=== PATIENT | female | born 1940 | race Caucasian/White ===

== ENCOUNTER 2019-07-03 08:34 | Day surgery (SDC) | payer MEDICARE, OTHER ==
[~2019-07-03] VITALS: Ht 160 cm; Wt 65.8 kg
[~2019-07-03 08:34] MED LIST: ADULT ASPIRIN R81 MG PO; ALENDRONATE SOD70 MG PO; LEVAQUIN500 MG PO; ZANTAC300 MG PO
[2019-07-03] MEDS ORDERED: VITAMIN D2000 UNIT PO (08:57)
[2019-07-03] MEDS ORDERED: VITAMIN C500 M1 PO (08:58)
[2019-07-03] MEDS ORDERED: VITAMIN B-121000 MCG PO (08:58)
[2019-07-03] MEDS ORDERED: VITAMIN E400 UNI5 PO (08:58)
--- NOTE | 2019-07-03 10:56 | NUR ---
07/03/19 1056 Katy Chi 1036 PT ARRIVED IN PACU SLEEPY. ABD SOFT. 1045 PT AWAKENS. SITTING UP IN BED. GLASSES RETURNED.
--- NOTE | 2019-07-03 16:56 | OR ---
[facility] [address] [place], [place] [address] Signed DATE OF OPERATION: 07/03/2019 SURGEON: Renetta Hines MD PREOPERATIVE DIAGNOSES: 1. Personal history of hyperplastic rectal polyps in 2007. 2. Resolved chronic diarrhea. POSTOPERATIVE DIAGNOSES: 1. Minimal sigmoid diverticulosis. 2. 4 mm polyp at 55 cm. 3. Minimal internal hemorrhoids. PROCEDURE PERFORMED: Colonoscopy with hot biopsy. ESTIMATED BLOOD LOSS: None. INDICATIONS: Lane is a 78-year-old female, who still has good functional status. She has used a cane for many years because of poor balance. Otherwise, she does great. We did a colonoscopy in 2007. She had just a few tiny hyperplastic polyps in the rectum and in the distal sigmoid colon. She has no family history of colon cancer or polyps. She has no lower GI complaints currently. She told me the diarrhea has resolved. She went through a rather large kidney stone extraction back in 2015. This required a nephrostomy tube and so forth. She also had cardiac clearance for that surgery. She said she went through it quite nicely. In the office, I gave Lane a pamphlet on colonoscopy. We did review the nature of the test along with its risks including, but not limited to gas, bloating, crampy abdominal pain, bleeding, perforation requiring surgery, and missed diagnosis. We also discussed the need for IV conscious sedation. She has done well with Versed and fentanyl in the past. She had expressed understanding and wished to proceed. PROCEDURE NOTE: Lane was taken into our endoscopy suite and placed in the left lateral decubitus position. She was given a total of 5 mg of Versed, 125 mcg of fentanyl to cover the case. A digital rectal exam was performed and this was unremarkable. The adult colonoscope was then introduced and advanced under direct visualization of the camera. She required some extra sedation as we came through her sigmoid colon. She does have Electronically Signed By: RENETTA HINES MD 07/03/19 1656 PATIENT NAME: LANE BURROWS OPERATIVE REPORT DATE OF : 40 REPORT #: [id number] PHYSICIAN: RENETTA HINES MD PCP: JENNA DON MD REPORT IS CONFIDENTIAL AND NOT TO BE RELEASED WITHOUT AUTHORIZATION [facility] [address] [place], [place] [address] Signed minimal sigmoid diverticulosis, but the colon is a little bit narrow and it just took a little extra sedation. Once we reached the cecum, we could easily see the appendiceal orifice and the ileocecal valve. Her right colon was actually fairly short. Her prep was quite good. We slowly withdrew the scope. Pictures were taken throughout for photodocumentation. Back at 55-60 cm, she had a small polypoid lesion, which we removed with the help of hot biopsy forceps. The scope was then withdrawn further through the sigmoid colon again back into the rectum. The rectum was unremarkable. We had just enough room to retroflex the scope and she has some very minimal internal hemorrhoid tissue. After this, the gas was suctioned out and colonoscope removed. Lane tolerated the procedure quite well. RECOMMENDATIONS: I will see Lane back in my office in 7 to 14 days to review her results. She will resume aspirin in 1 week. Renetta Hines MD ALB/MODL /[id number] cc: MD Jenna Arreola MD Copies: RENETTA HINES MD, JONATHAN MD ~ Electronically Signed By: RENETTA HINES MD 07/03/19 1656 PATIENT NAME: LANE BURROWS OPERATIVE REPORT DATE OF : 40 REPORT #: [id number] PHYSICIAN: RENETTA HINES MD PCP: JENNA DON MD REPORT IS CONFIDENTIAL AND NOT TO BE RELEASED WITHOUT AUTHORIZATION
--- NOTE | 2019-07-04 16:22 | PATH ---
[facility] [address] [place], [place] [address] Signed SPECIMEN(S): A COLON POLYP AT 55 CM SPECIMEN SOURCE: A. COLON POLYP AT 55 CM CLINICAL HISTORY: Hx: Polyps. Postop: Diverticulosis, polyp. MICROSCOPIC DESCRIPTION: Histologic sections of all submitted blocks are examined by light microscopy. These findings, together with the gross examination, support the pathologic diagnosis. FINAL PATHOLOGIC DIAGNOSIS: Mucosa, colon at 55 cm, biopsy: - Surface features suggestive but not entirely diagnostic of hyperplastic polyp. COMMENT: Multiple levels over three slides are examined. No adenomatous change or full thickness hyperplastic change is seen. LJA:cml:C2NR GROSS DESCRIPTION: The specimen, labeled "VR, colon polyp at 55 cm," is received in formalin and consists of two kenney-white soft tissue fragments each measuring 0.3 cm in greatest dimension. The specimen is entirely submitted in cassette (A1). AR (under the direct supervision of a pathologist) The Gross Description was prepared using a voice recognition system. The report was reviewed for accuracy; however, sound-alike word errors, addition and/or deletions may occur. If there is any question about this report, please contact Client Services. PERFORMING LABORATORY: The technical component was performed by [facility], [address] [place] [id number] (Accounts Receivable Executive: Lyla Ghotra MD; CLIA# [id number]). [facility] [address] [address] (Accounts Receivable Executive: Kyrie Lerner MD; CLIA# [id number]). PATIENT NAME: LANE BURROWS PATHOLOGY DATE OF : 40 REPORT #: [id number] PHYSICIAN: TORRES PATHOLOGY PCP: JENNA DON MD REPORT IS CONFIDENTIAL AND NOT TO BE RELEASED WITHOUT AUTHORIZATION [address] [place], [place] [address] Signed Diagnostician: Kyrie Lerner MD Pathologist Electronically Signed 07/04/2019 Copies: ~ PATIENT NAME: LANE BURROWS PATHOLOGY DATE OF : 40 REPORT #: [id number] PHYSICIAN: TORRES PATHOLOGY PCP: JENNA DON MD REPORT IS CONFIDENTIAL AND NOT TO BE RELEASED WITHOUT AUTHORIZATION
== END 2019-07-03 11:36 | disposition home or self-care (01) ==
LOC: OPS 08:34 → DS 08:34 → OPS 09:45 → DS 09:45 → OPS 11:36
PROVIDERS: Colon & Rectal Surgery
PROC: 0DBE8ZZ Excision of Large Intestine, Via Natural or Artificial Opening Endoscopic (ICD-10-PCS; principal; 2019-07-03 09:45)
DX: Z12.11 Encounter for screening for malignant neoplasm of colon (principal); K57.30 Diverticulosis of large intestine without perforation or abscess without bleeding; K63.5 Polyp of colon; K64.8 Other hemorrhoids; I10 Essential (primary) hypertension; K21.9 Gastro-esophageal reflux disease without esophagitis; Z86.010 Personal history of colon polyps; Z98.890 Other specified postprocedural states; Z88.5 Allergy status to narcotic agent; Z88.1 Allergy status to other antibiotic agents; Z88.0 Allergy status to penicillin; Z88.2 Allergy status to sulfonamides; Z79.899 Other long term (current) drug therapy; Z79.82 Long term (current) use of aspirin
CPT/HCPCS: 99153; G0500; J2250; J3010; J7120

== ENCOUNTER 2020-05-11 22:48 | Inpatient (IN) | payer MEDICARE, OTHER ==
[~2020-05-11] VITALS: Ht 160 cm; Wt 67.6 kg
--- OUTSIDE RECORDS SUMMARY | ~2020-05-11 | XMS | Encounter Summary ---
Demographics + + + | Address | [address] | | | [place] [address] | + + + | Home Phone | | + + + | Preferred Language | Unknown | + + + | Marital Status | | + + + | Roman Catholic Affiliation | Unknown | + + + | Race | Unknown | + + + | Ethnic Group | Unknown | + + + Author + + + | Author | [facility] | | | and [facility] | + + + | Organization | [facility] | | | and [facility] | + + + | Address | Unknown | + + + | Phone | Unavailable | + + + Support + + + + + | Name | Relationship | Address | Phone | + + + + + | Nayan Reynolds | ECON | [address] | | | | | [place] | | | | | [address] | | + + + + + Care Team Providers + +------+ + | Care Paediatric Thoracic Physician Name | Role | Phone | + +------+ + | Jakob Springer | PCP | | | MD | | | + +------+ + Reason for Referral Diagnostic/Screening (Routine) +--------+--------+ + + + + | Status | Reason | Specialty | Diagnoses / | Referred By | Referred To | | | | | Procedures | Contact | Contact | +--------+--------+ + + + + | Closed | | Radiology | Diagnoses | [place], | [facility] | | | | | Pre-op exam | MD Jerrica | [address] | | | | | Abnormal | [address] | [place], | | | | | EKG | [address] | [place] | | | | | Procedures | [place], | [address] | | | | | ECHO | [place] [address] | Phone: | | | | | Complete [place] | Phone: | [phone] | | | | | ECHO HEART | [phone] | Fax: | | | | | [place] | Fax: | [phone] | | | | | [address] [address] | [phone] | | | | | | [place] | | | | | | | ECHO HEART | | | | | | | [place] | | | | | | | [place], W/O | | | | | | | DOPPLER | | | +--------+--------+ + + + + Reason for Visit Diagnostic/Screening (Routine) +--------+--------+ + + + + | Status | Reason | Specialty | Diagnoses / | Referred By | Referred To | | | | | Procedures | Contact | Contact | +--------+--------+ + + + + | Closed | | Radiology | Diagnoses | [place], | [facility] | | | | | Pre-op exam | MD Jerrica | [address] | | | | | Abnormal | [address] | Cris Lynch, | | | | | EKG | [address] | [place] | | | | | Procedures | [place], | [address] | | | | | ECHO | [place] [address] | Phone: | | | | | Complete [place] | Phone: | [phone] | | | | | ECHO HEART | [phone] | Fax: | | | | | [place] | Fax: | [phone] | | | | | [place] | [phone] | | | | | | [place] | | | | | | | ECHO HEART | | | | | | | [place] | | | | | | | MP[place], W/O | | | | | | | DOPPLER | | | +--------+--------+ + + + + Encounter Details +--------+ + + + + | Date | Type | Department | Care Team | Description | +--------+ + + + + | 04/21/ | Hospital | [facility] | Jerrica Darling, | Pre-op exam; | | 2016 | Encounter | [facility] [address] | MD [address] | Abnormal EKG | | | | [address] [place] | [address], | | | | | [place] [address] | [place] [address] | | | | | [phone] | [phone] | | | | | | | | | | | | Myla Hansen, | | | | | | Technologist | | +--------+ + + + + Social History + +-------+ +--------+------+ | Tobacco Use | Types | Packs/Day | Years | Date | | | | | Used | | + +-------+ +--------+------+ | Former Smoker | | | | | + +-------+ +--------+------+ + +---+---+---+ | Smokeless Tobacco: | | | | | Never Used | | | | + +---+---+---+ + + | Comments: quit in 2000 | + + + + +---------+ + | Alcohol Use | Drinks/Week | oz/Week | Comments | + + +---------+ + | No | 0 Standard drinks | 0.0 | | | | or equivalent | | | + + +---------+ + + + + | Sex Assigned at | Date Recorded | | | | + + + | Not on file | | + + + documented as of this encounter Medications at Time of Discharge + + + +---------+--------+ + | Medication | Sig | Dispensed | Refills | Start | End Date | | | | | | Date | | + + + +---------+--------+ + | alendronate | Take 70 mg by mouth | | 0 | | | | (FOSAMAX) 70 mg | Once a week. | | | | | | tablet | | | | | | + + + +---------+--------+ + | aspirin 81 MG | Take 81 mg by mouth | | 0 | | | | tablet | Daily. | | | | | + + + +---------+--------+ + | Cholecalciferol | Take 5,000 Units by | | 0 | | | | (VITAMIN D-3) 2000 | mouth Daily. | | | | | | units CAPS | | | | | | + + + +---------+--------+ + | cyanocobalamin | Take 5,000 mcg by | | 0 | | | | (VITAMIN B-12) 500 | mouth Daily. | | | | | | mcg tablet | | | | | | + + + +---------+--------+ + | ranitidine | Take 300 mg by mouth | | 0 | | | | (ZANTAC) 300 MG | nightly. | | | | | | capsule | | | | | | + + + +---------+--------+ + documented as of this encounter Plan of Treatment Not on filedocumented as of this encounter Procedures + +--------+ + + + | Procedure Name | Priori | Date/Time | Associated Diagnosis | Comments | | | ty | | | | + +--------+ + + + | ECHO COMPLETE | Routin | 04/21/2016 | Pre-op exam | Results for this | | | e | 8:50 AM | Abnormal EKG | procedure are in the | | | | PDT | | results section. | + +--------+ + + + | LVEF VALUE | Routin | 04/21/2016 | | Results for this | | | e | | | procedure are in the | | | | | | results section. | + +--------+ + + + documented in this encounter Results ECHO Complete (04/21/2016 8:50 AM PDT) + + | Specimen | + + | | + + + + ----+ | Narrative | Performed At | + + ----+ | Transthoracic | [facility] | | Echocardiography Report (TTE) Demographics Patient Name STORMY FLOWERS | | [place] Room Number A Patient Number | [facility] | | [id number] Date of Study 04/21/2016 Visit Number | - IMAGING | | [id number] Referring | | | Physician PHONG BECERRIL Number Date of 1940 | | | [employer] FRENCH LORETTA DUQUE | | | [place] | | | [place], | | | [place] Age 75 year(s) | | | Interpreting PHONG BECERRIL | | | Machining And Assembly Supervisor JERRICA DARLING MD | | | Gender Female Nurse Procedure Type of | | | Study TTE procedure: ECHO Complete. Procedure dateDate: | | | 04/21/2016Start: 08:09 AM Study Location: Echo LabIndications: | | | Abnormal ECG 794.31/R94.31 and preop Exam [id number].Patient | | | Status: RoutineHeight: 63 inchesWeight: 163 poundsBSA: 1.77 m^2BMI: | | | 28.87 kg/m^2Rhythm: Normal Sinus RhythmHR: 78 bpm ConclusionsSummary1. | | | Normal left ventricular size, wall thickness and motion. Preserved | | | leftventricular systolic function. LVEF is 65%.2. Grade 1 left | | | ventricular diastolic dysfunction.3. Normal valvular structure.4. | | | Normal right-sided pressure.5. Normal IVC with normal respiratory | | | collapse. | | | Signature | | | | | | AM | | | -------- FindingsMitral ValveStructurally normal mitral valve without | | | significant stenosis orregurgitation.Aortic ValveAortic valve is | | | trileaflet without significant stenosis or regurgitation.Tricuspid | | | ValveA vegetation is noted on the tricuspid valve. Suggestive of | | | endocarditis.Pulmonic ValveStructurally normal pulmonic valve without | | | significant stenosis orregurgitation.Left AtriumNormal left | | | atrium.Left VentricleLeft ventricle is normal in size and function. | | | Ejection fraction isestimated at 65 %.Grade 1 left ventricular | | | diastolic dysfunction.Right AtriumNormal right atrium.Right | | | VentricleNormal right ventricular structure and function.Pericardial | | | EffusionNo evidence of pericardial effusion. MiscellaneousNormal | | | aortic root.The IVC appears normal. Valves Mitral Valve Peak E-Wave: | | | 0.6 m/s Peak A-Wave: 0.83 m/s Tissue Doppler Septal e' Velocity: | | | 0.06 m/s Septal E/e' Ratio:9.56 Aortic Valve Mean Gradient: | | | 2.05 mmHg LVOT Peak Velocity: 1.07 m/s Structures Left Atrium LA | | | A/P Dimension: 3.4 cm LA Area: 11.03 cm^2 | | | LA Vol/BSA Index: 11 mL/m^2 LA Volume: 18.71 ml | | | Left Ventricle Diastolic Dimension: 4.2 cm Systolic | | | Dimension: 2.77 cm Septum Diastolic: 1 cm PW Diastolic: 1 cm EF | | | Calculated: 70% Miscellaneous Aorta Aortic Root: 3.33 cm Ascending | | | Aorta: 3.58 cm | | | | | | Electronically signed by JERRICA DARLING MD(Interpreting physician) on | | | 04/22/2016 07:47 AM | | | | | | | | |Findings | | |Mitral Valve | | |Structurally normal mitral valve without significant stenosis or | | |regurgitation. | | |Aortic Valve | | |Aortic valve is trileaflet without significant stenosis or regurgitation. | | |Tricuspid Valve | | |A vegetation is noted on the tricuspid valve. Suggestive of endocarditis. | | |Pulmonic Valve | | |Structurally normal pulmonic valve without significant stenosis or | | |regurgitation. | | |Left Atrium | | |Normal left atrium. | | |Left Ventricle | | |Left ventricle is normal in size and function. Ejection fraction is | | |estimated at 65 %. | | |Grade 1 left ventricular diastolic dysfunction. | | |Right Atrium | | |Normal right atrium. | | |Right Ventricle | | |Normal right ventricular structure and function. | | |Pericardial Effusion | | |No evidence of pericardial effusion. | | | | | |Miscellaneous | | |Normal aortic root. | | |The IVC appears normal. | | | | | |Valves | | | | | | Mitral Valve | | | | | | Peak E-Wave: 0.6 m/s | | | Peak A-Wave: 0.83 m/s | | | | | | Tissue Doppler | | | | | | Septal e' Velocity: 0.06 m/s | | | Septal E/e' Ratio:9.56 | | | | | | Aortic Valve | | | | | | Mean Gradient: 2.05 mmHg | | | | | | LVOT | | | | | | Peak Velocity: 1.07 m/s | | | | | |Structures | | | | | | Left Atrium | | | | | | LA A/P Dimension: 3.4 cm LA Area: 11.03 cm^2 | | | LA Vol/BSA Index: 11 mL/m^2 LA Volume: 18.71 ml | | | | | | Left Ventricle | | | | | | Diastolic Dimension: 4.2 cm Systolic Dimension: 2.77 cm | | | Septum Diastolic: 1 cm | | | PW Diastolic: 1 cm | | | EF Calculated: 70% | | | | | | Miscellaneous | | | | | | Aorta | | | | | | Aortic Root: 3.33 cm | | | Ascending Aorta: 3.58 cm | | | | | + + ----+ + + | Procedure Note | + + | Olu, Rad Results In - 04/22/2016 7:48 AM PDT Transthoracic Echocardiography Report | | (TTE) Demographics Patient Name [facility] Room Number A Patient | | Number [id number] Date of Study 04/21/2016 Visit Number [id number] | | Referring Physician PHONG BECERRIL Number Date of | | 1940 [employer] FRENCH DUQUE | | [place], | | [place] Age 75 year(s) Interpreting PHONG | | JERRICA Machining And Assembly Supervisor JERRICA DARLING MD Gender | | Female NurseProcedureType of Study TTE procedure: ECHO | | Complete.Procedure dateDate: 04/21/2016Start: 08:09 AMStudy Location: Echo | | LabIndications: Abnormal ECG 794.31/R94.31 and preop Exam [id number].Patient Status: | | RoutineHeight: 63 inchesWeight: 163 poundsBSA: 1.77 m^2BMI: 28.87 kg/m^2Rhythm: Normal | | Sinus RhythmHR: 78 bpmConclusionsSummary1. Normal left ventricular size, wall thickness | | and motion. Preserved leftventricular systolic function. LVEF is 65%.2. Grade 1 left | | ventricular diastolic dysfunction.3. Normal valvular structure.4. Normal right-sided | | pressure.5. Normal IVC with normal respiratory | | collapse.Signature | | ------ Electronically signed by JERRICA DARLING MD(Interpreting physician) on | | 04/22/2016 07:47 | | AM FindingsMi | | tral ValveStructurally normal mitral valve without significant stenosis | | orregurgitation.Aortic ValveAortic valve is trileaflet without significant stenosis or | | regurgitation.Tricuspid ValveA vegetation is noted on the tricuspid valve. Suggestive of | | endocarditis.Pulmonic ValveStructurally normal pulmonic valve without significant | | stenosis orregurgitation.Left AtriumNormal left atrium.Left VentricleLeft ventricle is | | normal in size and function. Ejection fraction isestimated at 65 %.Grade 1 left | | ventricular diastolic dysfunction.Right AtriumNormal right atrium.Right VentricleNormal | | right ventricular structure and function.Pericardial EffusionNo evidence of pericardial | | effusion.MiscellaneousNormal aortic root.The IVC appears normal.Valves Mitral Valve Peak | | E-Wave: 0.6 m/s Peak A-Wave: 0.83 m/s Tissue Doppler Septal e' Velocity: 0.06 m/s | | Septal E/e' Ratio:9.56 Aortic Valve Mean Gradient: 2.05 mmHg LVOT Peak Velocity: | | 1.07 m/sStructures Left Atrium LA A/P Dimension: 3.4 cm LA Area: 11.03 | | cm^2 LA Vol/BSA Index: 11 mL/m^2 LA Volume: 18.71 ml Left Ventricle | | Diastolic Dimension: 4.2 cm Systolic Dimension: 2.77 cm Septum Diastolic: 1 cm | | PW Diastolic: 1 cm EF Calculated: 70% Miscellaneous Aorta Aortic Root: 3.33 cm Ascending | | Aorta: 3.58 cm | |Rhythm: Normal Sinus RhythmHR: 78 bpm | | | |Conclusions | |Summary | |1. Normal left ventricular size, wall thickness and motion. Preserved left | |ventricular systolic function. LVEF is 65%. | |2. Grade 1 left ventricular diastolic dysfunction. | |3. Normal valvular structure. | |4. Normal right-sided pressure. | |5. Normal IVC with normal respiratory collapse. | | | |Signature | | | | Electronically signed by JERRICA DARLING MD(Interpreting physician) on | | 04/22/2016 07:47 AM | | | | | |Findings | |Mitral Valve | |Structurally normal mitral valve without significant stenosis or | |regurgitation. | |Aortic Valve | |Aortic valve is trileaflet without significant stenosis or regurgitation. | |Tricuspid Valve | |A vegetation is noted on the tricuspid valve. Suggestive of endocarditis. | |Pulmonic Valve | |Structurally normal pulmonic valve without significant stenosis or | |regurgitation. | |Left Atrium | |Normal left atrium. | |Left Ventricle | |Left ventricle is normal in size and function. Ejection fraction is | |estimated at 65 %. | |Grade 1 left ventricular diastolic dysfunction. | |Right Atrium | |Normal right atrium. | |Right Ventricle | |Normal right ventricular structure and function. | |Pericardial Effusion | |No evidence of pericardial effusion. | | | |Miscellaneous | |Normal aortic root. | |The IVC appears normal. | | | |Valves | | | | Mitral Valve | | | | Peak E-Wave: 0.6 m/s | | Peak A-Wave: 0.83 m/s | | | | Tissue Doppler | | | | Septal e' Velocity: 0.06 m/s | | Septal E/e' Ratio:9.56 | | | | Aortic Valve | | | | Mean Gradient: 2.05 mmHg | | | | LVOT | | | | Peak Velocity: 1.07 m/s | | | |Structures | | | | Left Atrium | | | | LA A/P Dimension: 3.4 cm LA Area: 11.03 cm^2 | | LA Vol/BSA Index: 11 mL/m^2 LA Volume: 18.71 ml | | | | Left Ventricle | | | | Diastolic Dimension: 4.2 cm Systolic Dimension: 2.77 cm | | Septum Diastolic: 1 cm | | PW Diastolic: 1 cm | | EF Calculated: 70% | | | | Miscellaneous | | | | Aorta | | | | Aortic Root: 3.33 cm | | Ascending Aorta: 3.58 cm | + + + + + + + | Performing | Address | City/State/Zipcode | Phone Number | | Organization | | | | + + + + + | [facility] | [address] | [place], [place] | [phone] | | [facility] | | [address] | | | - IMAGING | | | | + + + + + LVEF VALUE (04/21/2016) + +-------+ + + + | Component | Value | Ref Range | Performed | Pathologist | | | | | At | Signature | + +-------+ + + + | LVEF-TTE | 65 | | | | | TRANSTHORAC | | | | | | IC ECHO | | | | | + +-------+ + + + documented in this encounter Visit Diagnoses + + | Diagnosis | + + | Pre-op exam Preoperative examination, unspecified | + + | Abnormal EKG Nonspecific abnormal electrocardiogram (ECG) (EKG) | + + documented in this encounter"
--- OUTSIDE RECORDS SUMMARY | ~2020-05-11 | XMS | Encounter Summary ---
Demographics + + + | Address | [address] | | | [place] [address] | + + + | Home Phone | | + + + | Preferred Language | Unknown | + + + | Marital Status | | + + + | Amish Affiliation | Unknown | + + + | Race | Unknown | + + + | Ethnic Group | Unknown | + + + Author + + + | Author | [facility] | | | and [place] | + + + | Organization | [facility] | | | and [place] | + + + | Address | Unknown | + + + | Phone | Unavailable | + + + Support + + + + + | Name | Relationship | Address | Phone | + + + + + | Nayan Reynolds | E[place] | [address] | | | | | [place] | | | | | [address] | | + + + + + Care Team Providers + +------+ + | Care Pharmacovigilance Scientist Name | Role | Phone | + [...] Radiology | Diagnoses | [place], | [facility] | | | | | Abnormal | MD Jerrica | Medicine | | | | | electrocardi | [address] | [address] | | | | | ogram (ECG) | [address] | [place], | | | | | (EKG) | [place], | [place] | | | | | Encounter | [place] [address] | [address] | | | | | for other | Phone: | Phone: | | | | | preprocedura | [phone] | [phone] | | | | | l | Fax: | Fax: | | | | | examination | [phone] | [phone] | | | | | Procedures | | | | | | | NM Nuclear | | | | | | | Stress Test | | | | | | | (Vasodilator | | | | | | | ) CHG | | | | | | | MYOCARDIAL | | | | | | | SPECT | | | | | | | MULTIPLE | | | | | | | STUDIES [place] | | | | | | | CV STRS TST | | | | | | | XERS&/OR RX | | | | | | | CONT ECG W/O | | | | | | | I&R [place] | | | | | | | CARDIAC | | | | | | | STRESS | | | | | | | TST,INTERP/R | | | | | | | EPT ONLY | | | +--------+--------+ + + + + Diagnostic/Screening (Routine) +--------+--------+ + + + + | Status | Reason | Specialty | Diagnoses / | Referred By | Referred To | | | | | Procedures | Contact | Contact | +--------+--------+ + + + + | Closed | | Radiology | Diagnoses | [place], | [facility] | | | | | Pre-op exam | MD Jerrica | [address] | | | | | Abnormal | [address] | [place], | | | | | EKG | [address] | [place] | | | | | Procedures | [place], | [address] | | | | | ECHO | [place] [address] | Phone: | | | | | Complete [place] | Phone: | [phone] | | | | | ECHO HEART | [phone] | Fax: | | | | | [facility] | Fax: | [phone] | | | | | MPLETE W | [phone] | | | | | | DOPPLER [place] | | | | | | | ECHO HEART | | | | | | | [facility],[place] | | | | | | | MPLETE, W/O | | | | | | | DOPPLER | | | +--------+--------+ + + + + Reason for Visit + + + | Reason | Comments | + + + | New Patient | RBBB | + + + | Pre-op Exam | Kidney stone and Bladder Suspension | + + + | Abnormal Tests | EKG | + + + Evaluate & Treat (Routine) +--------+--------+ + + + + | Status | Reason | Specialty | Diagnoses / | Referred By | Referred To | | | | | Procedures | Contact | Contact | +--------+--------+ + + + + | Closed | | Cardiology | Diagnoses | Gian, | [place]ong, | | | | | Abnormal | Jakob | MD Jerrica | | | | | EKG RBBB | MD Saurabh | [address] | | | | | Preop | [address] | | | | | cardiovascul | Gavin Reyes | [place], | | | | | ar exam | [place] | [place] [address] | | | | | Procedures | [place] | Phone: | | | | | LACE MACHINE OPERATOR | [address] | [phone] | | | | | | Phone: | Fax: | | | | | | [phone] | [phone] | | | | | | Fax: | | | | | | | [phone] | | +--------+--------+ + + + + Encounter Details +--------+---------+ + + + | Date | Type | Department | Care Team | Description | +--------+---------+ + + + | 04/14/ | Office | [facility] | Jerrica Darling, | RBBB (Primary Dx); | | 2015 | Visit | CARDIOLOGY [address] | Pre-op exam; | | | | [address] [place], | [place], | Abnormal EKG | | | | [place] [address] | [place] [address] | | | | | [phone] | [phone] | | | | | | | | +--------+---------+ + + + Social History + +-------+ [...] +---+---+---+ + + | Comments: quit in 1999 | + + + + +---------+ + [...] + + documented as of this encounter Last Filed Vital Signs + + + + + | Vital Sign | Reading | Time Taken | Comments | + + + + + | Blood Pressure | 124/82 | 04/14/2016 2:06 PM | | | | | PDT | | + + + + + | Pulse | 84 | 04/14/2016 1:57 PM | Regular | | | | PDT | | + + + + + | Temperature | - | - | | + + + + + | Respiratory Rate | 16 | 04/14/2016 1:57 PM | | | | | PDT | | + + + + + | Oxygen Saturation | - | - | | + + + + + | Inhaled Oxygen | - | - | | | Concentration | | | | + + + + + | Weight | 74.1 kg (163 lb 4.8 | 04/14/2016 1:57 PM | | | | oz) | PDT | | + + + + + | Height | 160 cm (5' 3") | 04/14/2016 1:57 PM | | | | | PDT | | + + + + + | Body Mass Index | 28.93 | 04/14/2016 1:57 PM | | | | | PDT | | + + + + + documented in this encounter Patient Instructions Patient Instructions Perla Levin RN - 04/14/2016 3:13 PM PDTEcho: Date: Check-In Time: Where to Check In: Persantine/Lexiscan Myoview Date: Check-in Time: Where to Check In: Instructions 1. Nothing to eat or drink anything 6 hours prior to Persantine/Lexiscan 2. DO NOT drink caffeine 12 hours prior to the test. 3. You can take all other medications the morning of the test with a small sip of water. 4. Please bring a list of your current medications with you. Resting Portion of test: Date: Check-in Time: Where to Check In: Follow up appointment: 2-4 weeks Provider: Jerrica Darling MD Date: Check-In Time: documented in this encounter Progress Notes Jerrica Darling MD - 04/14/2016 2:05 PM PDTFormatting of this note might be different f rom the original. PATIENT NAME: Neisha Sanders : 1940: AGE: 75 y.o. REFERRED BY: Jakob Springer PRIMARY CARE: Jakob Springer MD NEW PATIENT OFFICE VISIT Date of Service: 04/14/16 HISTORY OF PRESENT ILLNESS: Neisha Sanders is a 75 y.o. female with a history of osteoporosis, heart murmur, kidney stone, tipped bladder and abnormal EKG. She is being seen today for preop clearance prior to bladder surgery. Patient was recently seen by Dr. Ag for a kidney stone who planned to perform operation . EKG was performed and revealed a right bundle branch block. Today, patient complains of bilateral ankle swelling. However, her physical activity is ve ry limited. She cannot walk far due to the imbalance. She's been most of the time sitting, watching TV and reading books. She was told that she had a heart murmur in the past. Ther e is no chest pain or chest discomfort both at rest and on exertion. Patient denies breathl essness. There is no palpitation dizziness or lightheadedness. Patient can sleep on one pi llow at night without difficulty breathing. CURRENT PROBLEMS Patient Active Problem List Diagnosis Bundle branch block, right Cystitis, subacute Essential hypertension, benign GERD (gastroesophageal reflux disease) Right nephrolithiasis Osteoporosis, postmenopausal Vitamin D deficiency MEDICAL, SURGICAL, AND PERSONAL HISTORY Past Surgical History Procedure Laterality Date Colonoscopy 11/2007 hyperplastic polyps Appendectomy Hysterectomy, total abdominal removal of both ovaries Family History Problem Relation Age of Onset Cirrhosis Father Diabetes Mother Heart disease Mother arteriosclerotic Family Status Relation Status Age Father 58 Mother 62 Sister Alive Sister Alive Sister Alive Sister Alive Brother Alive Brother Alive Sister Sister Sister Sister Brother Brother History Social History Marital Status: Spouse Name: N/A Number of Children: 3 Years of Education: N/A Social History Main Topics Smoking status: Former Smoker Smokeless tobacco: Never Used Comment: quit in 1999 Alcohol Use: No Drug Use: No Sexual Activity: Not on file Other Topics Concern None Social History Narrative Exercise:Stationary bike Caffeine: 1 cup to 1 pot of coffee daily Living situation:alone CURRENT MEDICATIONS Current Outpatient Prescriptions Medication Sig Dispense Refill alendronate (FOSAMAX) 70 mg tablet Take 70 mg by mouth Once a week. aspirin 81 MG tablet Take 81 mg by mouth Daily. Cholecalciferol (VITAMIN D-3) 2000 units CAPS Take 4,000 Units by mouth Daily. cyanocobalamin (VITAMIN B-12) 500 mcg tablet Take 500 mcg by mouth Daily. ranitidine (ZANTAC) 300 MG capsule Take 300 mg by mouth nightly. No current facility-administered medications for this visit. ALLERGIES Allergies Allergen Reactions Codeine Other (See Comments) hallucinations Doxycycline Diarrhea and Nausea And Vomiting Penicillins Hives and Rash Sulfa Antibiotics Hives and Rash ROS Review of Systems Constitutional: Positive for malaise/fatigue. Negative for fever, chills, weight loss and d iaphoresis. HENT: Negative for congestion, hearing loss, nosebleeds, sore throat and tinnitus. Eyes: Negative for blurred vision and double vision. Respiratory: Positive for shortness of breath. Negative for cough and wheezing. Cardiovascular: Positive for leg swelling. Negative for chest pain, palpitations, orthopnea , claudication and PND. Gastrointestinal: Positive for heartburn and abdominal pain. Negative for nausea, vomiting, diarrhea, constipation, blood in stool and melena. Genitourinary: Positive for dysuria and flank pain. Negative for urgency, frequency and hem aturia. Musculoskeletal: Negative for myalgias, back pain, joint pain, falls and neck pain. Skin: Negative for itching and rash. Neurological: Positive for tremors. Negative for dizziness, tingling, seizures, loss of con sciousness, weakness and headaches. Endo/Heme/Allergies: Negative for environmental allergies and polydipsia. Bruises/bleeds ea sily. Psychiatric/Behavioral: Negative for memory loss. The patient is not nervous/anxious. OBJECTIVE: PHYSICAL EXAM BP 124/82 mmHg | Pulse 84 | Resp 16 | Ht 1.6 m (5' 3") | Wt 74.072 kg (163 lb 4.8 oz) | BMI 28.93 kg/m2 Physical Exam Constitutional: She appears well-developed and well-nourished. No distress. Female individual without acute distress, arrived with a cane, accompanied by her son. Neck: Normal carotid pulses, no hepatojugular reflux and no JVD present. Carotid bruit is n ot present. Cardiovascular: Normal rate, regular rhythm, S1 normal, S2 normal, intact distal pulses and normal pulses. PMI is not displaced. Exam reveals no gallop, no S3, no S4 and no friction rub. Murmur (rade 1/6 holosystolic murmur along) heard. Pulses: Carotid pulses are 2+ on the right side, and 2+ on the left side. Dorsalis pedis pulses are 2+ on the right side, and 2+ on the left side. Pulmonary/Chest: Effort normal and breath sounds normal. No accessory muscle usage. No resp iratory distress. She has no wheezes. She has no rhonchi. She has no rales. Abdominal: Normal appearance, normal aorta and bowel sounds are normal. She exhibits no abd ominal bruit. There is no hepatosplenomegaly. There is no tenderness. Musculoskeletal: She exhibits edema (bilateral 1+ ankle pitting edema.). Neurological: She is alert. Gait normal. Skin: Skin is warm and dry. Psychiatric: She has a normal mood and affect. Her mood appears not anxious. She does not e xhibit a depressed mood. ECG: Normal sinus rhythm, complete right bundle branch block, nonspecific ST-T abnormaliti es. LAB RESULTS: LIPID No results found for: CHOL, TRIG, HDL, LDL, CHOLHDL, LDLEX, HDLEX, TRIGEX, CHOLEX CHEMISTRY Lab Results Component Value Date GLUEX 111* 08/22/2015 NAEX 138 08/22/2015 KEX 3.8 08/22/2015 CLEX 104 08/22/2015 CO2EX 25 08/22/2015 ASTEX 16 08/22/2015 ALTEX 9 08/22/2015 EGFREX 76 08/22/2015 CREEX 0.75 08/22/2015 HEMATOLOGY Lab Results Component Value Date WBCEX 13.6* 08/22/2015 HGBEX 15.3 08/22/2015 HCTEX 45.6* 08/22/2015 PLTEX 223 08/22/2015 I reviewed records from Jakob Springer M.D. for office visit on 03/25/16. Referr al to paper winder for preop clearance ASSESSMENT: 1. Right bundle-branch block and ankle swelling, preop clearance prior to bladder surgery A. Patient was found to have a complete right bundle branch block on the preop EKG. B. Today, patient complains of bilateral ankle swelling. However, her physical activity i s very limited. She cannot walk far due to the imbalance. She's been most of the time sitt ing, watching TV and reading books. She was told that she had a heart murmur in the past. There is no chest pain or chest discomfort both at rest and on exertion. Patient denies richard athlessness. She is in a class II of [place] [employer] functional class. There is 1+ bilater al ankle pitting edema on physical examination. She is undergoing an elective, non-emergent surgery and would benefit from a cardiac risk assessment. Her Revised Cardiac Risk Index (RCRI) is calculated showing his risks include high risk surgery, coronary artery disease, congestive heart failure, cerebrovascular diseas e, diabetes on insulin and serum creatinine >2mg/dL, which is 1 risk equating to Class II, e stimated 0.9% risk of MACE. This is considered an elevated risk. Her Frankel Activity Status Index (DASI) score is calculated and shows she has a poor functional capacity, so we are kiki ble to evaluate METS, and would benefit from further testing and risk stratification. She i s not on a beta kira, and is not on HMG CoA reductase inhibitor (statin). She [employer] stress test.. Prior to proceeding with surgery, the risk and benefit of the procedure need to be discussed between patient and surgeon. 2. Heart murmur 3. Kidney stone, tipped bladder A. Patient was recently seen by Dr. Ag for a kidney stone who planned to perform opera tion. EKG was performed and revealed a right bundle branch block. PLAN: 1. Echocardiogram is warranted to assess for potential heart failure. 2. Persantine SPECT MPI is indicated to assess cardiac risk prior to noncardiac surgery. 3. I recommend a therapeutic lifestyle change including walking 30 minutes a day, choosing healthy choices of diet , including DASH diet and weight reduction. 4. Follow-up in 2-4 weeks. Electronically signed by: Jerrica Darling MD [facility] 04/14/2016 Portions of this chart may have been created with [employer] voice recognition software. Occasi onal wrong-word or sound-alike substitutions may have occurred due to the inherent paz itations of voice recognition software. Please read the chart carefully and recognize, using context, where these substitutions have occurred. documented in this encounter Plan of Treatment Not on filedocumented as of this encounter Procedures + +--------+ + + + | Procedure Name | Priori | Date/Time | Associated Diagnosis | Comments | | | ty | | | | + +--------+ + + + | ECG 12 LEAD | Routin | 04/14/2016 | RBBB Pre-op exam | Results for this | | | e | 1:55 PM | | procedure are in the | | | | PDT | | results section. | + +--------+ + + + documented in this encounter Results NM Nuclear Stress Test (Vasodilator) (04/21/2016 1:27 PM PDT) + + | Specimen | + + | | + + + + + | Impressions | Performed At | + + + | 1. Persantine EKG is negative. 2. Normal Persantine | [facility] | | Sestamibi myocardial perfusion study with a normal left ventricular | [facility] | | size and wall thickness. Preserved left ventricular systolic | [facility] | | function. LVEF by gated SPECT 80 %. Signed by: Jerrica | - IMAGING | | MD Phong [facility] 04/21/2016, 13:27 | | + + + + + + | Narrative | Performed At | + + + | NUCLEAR MEDICINE STRESS TEST REPORT | [facility] | | Patient Name: Neisha Sanders Study Date: 04/21/2016 Primary | [facility] | | Care Provider: Jakob Springer MD : | [facility]ICAL [facility] | | 1940 Age: 75 y.o. Gender: female CLINICAL | - IMAGING | | HISTORY/DIAGNOSIS: Chest pain PERSANTINE SESTAMIBI STRESS | | | TEST Indication: chest pain Procedure: In the supine | | | position, 42.1 mg of Persantine was infused intravenously over 4 | | | minutes. Blood pressure and EKG were monitored every 1 minute. 5 | | | mL of normal saline was utilized to flush the IV line. 2.5 minutes | | | later, 10.4 mCi sestamibi intravenous injection. SPECT myocardial | | | perfusion imaging was acquired with wall motion analysis. Rest | | | imaging was performed using 34.1 mCi Sestamibi intravenous | | | injection. Repeated SPECT myocardial perfusion imaging was | | | acquired with wall motion analysis. At the end of the procedure, | | | 75 mg of aminophylline was infused intravenously. Hemodynamics: | | | Heart rate baseline 80 beats per minute, peak 94 beats per minute. | | | Blood pressure baseline 143/72 mmHg, peak 119/65 mmHg. EKG | | | baseline underlying sinus rhythm, complete right bundle branch | | | block. Peak unchanged. Side Effects: None. Arrhythmia: | | | None. Persantine Sestamibi Myocardial Perfusion Imaging Result: | | | The Persantine Sestamibi tomographic images, reviewed | | | without the attenuation compensation resolution, revealed a normal | | | myocardial perfusion pattern as seen in short axis, vertical long | | | axis, and horizontal long axis projections. The left ventricular | | | cavity is normal. The rest imaging is also normal. | | | Gated SPECT reveals a normal left ventricular wall thickness and | | | motion. Preserved left ventricular systolic function. LVEF by | | | gated SPECT is 80 %. | | + + + + + + + + | Performing | Address | City/State/Zipcode | Phone Number | | Organization | | | | + + + + + | [facility] | [address] | [place] | [phone] | | [facility] | | [address] | | | - IMAGING | | | | + + + + + ECHO Complete (04/21/2016 8:50 AM PDT) + + | Specimen | + + | | + + + + ----+ | Narrative | Performed At | + + ----+ | Transthoracic | [facility] | | Echocardiography Report (TTE) Demographics Patient Name STORMY FLOWERS | | [place] Room Number A Patient Number | [facility] | | [id number] Date of Study 04/21/2016 Visit Number | - IMAGING | | [id number] Referring | | | Physician PHONG BECERRIL Number Date of 1940 | | | Service Engineer FRENCH DUQUE | | | [place] | | | [place], | | | [place] Age 75 year(s) | | | Interpreting PHONG BECERRIL | | | Environmental Compliance Technician JERRICA DARLING MD | | | Gender [...] | | | | Electronically signed by VALERIA VALERAInterpreting physician) on | | | 04/22/2016 07:47 [...] | Procedure Note | + + | Shay Raines Results In - 04/22/2016 7:48 AM PDT Transthoracic Echocardiography Report | | (TTE) Demographics Patient Name STORMY SHERMAN Room Number Rema Patient | | Number [id number] Date of Study 04/21/2016 Visit Number [id number] | | Referring Physician PHONG BECERRIL Number Date of | | 1940 Service Engineer FRENCH DUQUE | | [place], | | [place] Age 75 year(s) Interpreting PHONG | | JERRICA Environmental Compliance Technician JERRICA DARLING MD Gender | | Female [...] | + + + + + | [facility] | [address] | [place], [place] | [phone] | | [facility] | | [address] | | | - IMAGING | | | | + + + + + ECG 12 lead (04/14/2016 1:55 PM PDT) + + + + + + | Component | Value | Ref Range | Performed | Pathologist | | | | | At | Signature | + + + + + + | VENTRICULAR | 84 | BPM | [facility] | | | RATE EKG | | | | | + + + + + + | ATRIAL RATE | 84 | BPM | [facility] | | + + + + + + | P-R | 134 | ms | [facility] | | | INTERVAL | | | | | + + + + + + | QRS | 130 | ms | [facility] | | | DURATION | | | | | + + + + + + | Q-T | 392 | ms | [facility] | | | INTERVAL | | | | | + + + + + + | Q-T | 463 | ms | [facility] | | | INTERVAL | | | | | | (CORRECTED) | | | | | + + + + + + | P WAVE AXIS | 68 | degrees | [facility] | | + + + + + + | QRS AXIS | 10 | degrees | [facility] | | + + + + + + | T AXIS | 59 | degrees | [facility] | | + + + + + + | INTERPRETAT | Normal sinus rhythmRight | | [facility] | | | ION TEXT | bundle branch | | | | | | blockAbnormal ECGNo | | | | | | previous ECGs | | | | | | availableConfirmed by | | | | | | JERRICA DARLING MD | | | | | | ([id number]) on 04/16/2016 | | | | | | 10:00:40 AM | | | | + + + + + + + + | Specimen | + + | | + + + + + | Narrative | Performed At | + + + | | | + + + + +---------+ + + | Performing | Address | City/State/Zipcode | Phone Number | | Organization | | | | + +---------+ + + | [facility] | | | | + +---------+ + + documented in this encounter Visit Diagnoses + + | Diagnosis | + + | RBBB - Primary Right bundle branch block | + + | Pre-op exam Preoperative examination, unspecified | + + | Abnormal EKG Nonspecific abnormal electrocardiogram (ECG) (EKG) | + + documented in this encounter
--- OUTSIDE RECORDS SUMMARY | ~2020-05-11 | XMS | Encounter Summary ---
Demographics + + + | Address | [address] | | | [place] [address] | + + + | Home Phone | | + + + | Preferred Language | Unknown | + + + | Marital Status | | + + + | Jewish Affiliation | Unknown | + + + | Race | Unknown | + + + | Ethnic Group | Unknown | + + + Author + + + | Author | [facility] | | | and [place] | + + + | Organization | [facility] | | | and [place] | + + + | Address | Unknown | + + + | Phone | Unavailable | + + + Support + + + + + | Name | Relationship | Address | Phone | + + + + + | Nayan Reynolds | ECON | [address] | | | | | [place] | | | | | [address] | | + + + + + Care Team Providers + +------+ + | Care Emg Technician Name | Role | Phone | + [...] Closed | | Radiology | Diagnoses | Zena | | | | | | Calculus of | Mario Alberto Arce MD | | | | | | kidney | [address] | | | | | | Procedures | [address] | | | | | | CT Abdomen | [address] | | | | | | Pelvis wo | [place], [place] | | | | | | Contrast | [address] | | | | | | | Phone: | | | | | | | [phone] | | | | | | | Fax: | | | | | | | [phone] | | +--------+--------+ + + + + Reason for Visit Diagnostic/Screening (Routine) +--------+--------+ + + + + | Status | Reason | Specialty | Diagnoses / | Referred By | Referred To | | | | | Procedures | Contact | Contact | +--------+--------+ + + + + | Closed | | Radiology | Diagnoses | Janoff, | | | | | | Calculus of | Mario Alberto Arce MD | | | | | | kidney | [address] | | | | | | Procedures | [address] | | | | | | CT Abdomen | [address] | | | | | | Pelvis wo | [place], [place] | | | | | | Contrast | [address] | | | | | | | Phone: | | | | | | | [phone] | | | | | | | Fax: | | | | | | | [phone] | | +--------+--------+ + + + + Encounter Details +--------+ + + + + | Date | Type | Department | Care Team | Description | +--------+ + + + + | 07/20/ | Hospital | [facility] | Mario Alberto Freitas, | Calculus of kidney | | 2016 | Encounter | MED CTR [address] | [address] | | | | | [place], | [address] | | | | | [place] [address] | [place], [place] | | | | | [phone] | [address] | | | | | | [phone] | | | | | | | | +--------+ + + + + [...] | + +--------+ + + + | CT ABDOMEN PELVIS WO | Routin | 07/20/2016 | Calculus of kidney | Results for this | | CONTRAST | e | 11:59 AM | | procedure are in the | | | | PDT | | results section. | + +--------+ + + + documented in this encounter Results CT Abdomen Pelvis wo Contrast (07/20/2016 11:59 AM PDT) + + | Specimen | + + | | + + + + + | Narrative | Performed At | + + + | UNENHANCED CT ABDOMEN AND PELVIS 07/20/2016 11:48 AM CLINICAL | [facility] | | HISTORY: CALCULUS OF KIDNEY COMPARISON: None TECHNIQUE: | | | Axial unenhanced images are performed through the abdomen and pelvis. | | | Coronal and sagittal reformations are also performed. FINDINGS: | | | Very large, smoothly marginated high density stone virtually | | | filling the right renal pelvis. This has cross-sectional measurements | | | 1.6 x 2.7 x 1.[address] density of approximately 1000 units. | | | Surprisingly, there is no associated right hydronephrosis. Kidneys | | | are symmetric in size with normal contours. Low-density 2 cm cyst in | | | the mid cortex of the left kidney. No other focal renal abnormality. | | | No other stones. Urinary bladder is within normal limits. Prostatic | | | urethra is prominent, without prostatic hypertrophy. Emphysematous | | | changes in the lung bases with no airspace consolidation or nodule. | | | No effusion. Liver shows normal appearance for a noncontrast scan. | | | Gallbladder, pancreas, spleen and adrenal glands are normal. | | | Diffuse almost uniform aortic intimal calcification with no stenotic | | | or aneurysmal segments. No retroperitoneal adenopathy. Stomach | | | and small bowel are nondilated. Ileocecal junction is normal. No | | | appendix is seen. Scattered diverticula in the sigmoid region without | | | associated inflammatory change. No other colonic abnormality. No | | | mesenteric inflammatory changes or adenopathy. No abdominal or pelvic | | | free fluid. Mild facet degenerative changes of the lumbar spine. | | | No other bony or body. IMPRESSION - 1. Very large, but | | | nonobstructing high density stone in the right renal pelvis as | | | described above. This stone should be readily visible on plain x-ray. | | | No other renal stones. 2. Sigmoid diverticulosis, without imaging | | | features of diverticulitis. 3. Pulmonary emphysema. Dictated | | | and Signed by: Andrzej Judd MD Electronically signed: | | | 07/20/2016 4:35 PM | | + + + + + | Procedure Note | + + | Olu, Rad Results In - 07/20/2016 4:38 PM PDT UNENHANCED CT ABDOMEN AND PELVIS | | 07/20/2016 11:48 AM CLINICAL HISTORY: CALCULUS OF KIDNEY COMPARISON: None TECHNIQUE: | | Axial unenhanced images are performed through the abdomen and pelvis. Coronal and | | sagittal reformations are also performed. FINDINGS: Very large, smoothly marginated | | high density stone virtually filling the rightrenal pelvis. This has cross-sectional | | measurements 1.6 x 2.7 x 1.3 cm with a CTdensity of approximately 1000 units. | | Surprisingly, there is no associated righthydronephrosis. Kidneys are symmetric in size | | with normal contours. Low-density2 cm cyst in the mid cortex of the left kidney. No | | other focal renalabnormality. No other stones. Urinary bladder is within normal limits. | | Prostaticurethra is prominent, without prostatic hypertrophy.Emphysematous changes in | | the lung bases with no airspace consolidation ornodule. No effusion.Liver shows normal | | appearance for a noncontrast scan.Gallbladder, pancreas, spleen and adrenal glands are | | normal.Diffuse almost uniform aortic intimal calcification with no stenotic oraneurysmal | | segments. No retroperitoneal adenopathy.Stomach and small bowel are nondilated. | | Ileocecal junction is normal. Noappendix is seen. Scattered diverticula in the sigmoid | | region without associatedinflammatory change. No other colonic abnormality.No mesenteric | | inflammatory changes or adenopathy. No abdominal or pelvic freefluid.Mild facet | | degenerative changes of the lumbar spine. No other bony or body. IMPRESSION - 1. Very | | large, but nonobstructing high density stone in the right renal pelvisas described | | above. This stone should be readily visible on plain x-ray. Noother renal stones.2. | | Sigmoid diverticulosis, without imaging features of diverticulitis.3. Pulmonary | | emphysema. Dictated and Signed by: Andrzej Judd MD Electronically signed: 07/20/2016 | | 4:35 PM | | | |Diffuse almost uniform aortic intimal calcification with no stenotic or | |aneurysmal segments. No retroperitoneal adenopathy. | | | |Stomach and small bowel are nondilated. Ileocecal junction is normal. No | |appendix is seen. Scattered diverticula in the sigmoid region without associated | |inflammatory change. No other colonic abnormality. | | | |No mesenteric inflammatory changes or adenopathy. No abdominal or pelvic free | |fluid. | | | |Mild facet degenerative changes of the lumbar spine. No other bony or body. | | | |IMPRESSION - | |1. Very large, but nonobstructing high density stone in the right renal pelvis | |as described above. This stone should be readily visible on plain x-ray. No | |other renal stones. | | | |2. Sigmoid diverticulosis, without imaging features of diverticulitis. | | | |3. Pulmonary emphysema. | | | |Dictated and Signed by: Andrzej Judd MD | | Electronically signed: 07/20/2016 4:35 PM | + + + +---------+ + + | Performing | Address | City/State/Zipcode | Phone Number | | Organization | | | | + +---------+ + + | [facility] | | | | + +---------+ + + documented in this encounter Visit Diagnoses + + | Diagnosis | + + | Calculus of kidney | + + documented in this encounter"
--- OUTSIDE RECORDS SUMMARY | ~2020-05-11 | XMS | Encounter Summary ---
Demographics + + + | Address | [address] | | | [place] [address] | + + + | Home Phone | | + + + | Preferred Language | Unknown | + + + | Marital Status | | + + + | Advent Affiliation | Unknown | + + + | Race | Unknown | + + + | Ethnic Group | Unknown | + + + Author + + + | Author | [facility] | | | and [place] | + + + | Organization | [facility] | | | and [place] | + + + | Address | Unknown | + + + | Phone | Unavailable | + + + Support + + + + + | Name | Relationship | Address | Phone | + + + + + | Nayan Reynolds | ECON | [address] | | | | | [place] | | | | | [address] | | + + + + + Care Team Providers + +------+ + | Care Cover Cutter Name | Role | Phone | + +------+ + | Jakob Springer PCP | | | MD | | | + +------+ + Reason for Visit + +--------+ + | Reason | Onset | Comments | | | Date | | + +--------+ + | Appointment | 03/29/ | | | | 2015 | | + +--------+ + Encounter Details +--------+ + + + + | Date | Type | Department | Care Team | Description | +--------+ + + + + | 03/29/ | Telephone | [facility] | Jakob Springer | Appointment | | 2016 | | CARDIOLOGY [address] | MD [address] | | | | | [place], | [place] | | | | | [place] [address] | [place] | | | | | [phone] | [address] | | | | | | [phone] | | | | | | | | +--------+ + + + + Social History + +-------+ +--------+------+ | Tobacco Use | Types | Packs/Day | Years | Date | | | | | Used | | + +-------+ +--------+------+ | Never Assessed | | | | | + +-------+ +--------+------+ + + + | Sex Assigned at | Date Recorded | | | | + + + | Not on file | | + + + documented as of this encounter Miscellaneous Notes Telephone Encounter - Rose Mary Mai - 03/29/2016 1:33 PM PDTPatient called back, states that her son can bring her on 04-14-16 and would like to schedule her appointment. Appointme nt was scheduled. elephon e Encounter - Rose Mary Mai - 03/29/2016 10:[address]a with Dr. Gian Proctor's office, called to check status of their referral to Dr. Fernandes. Advised that referral had been received and patient had been contacted, patient declined scheduling appo intment until she spoke to her son, we are waiting for return call from patient or son.Elect ronically signed by Rose Mary Mai at 03/29/2016 10:38 AM PDTTelephone Encounter - Rose Mary Mai - 03/29/2016 9:09 AM PDTNew Patient appointment ready to be scheduled with Dr. Naeem olivera Called and spoke to patient, offered appointment on 04-14-16 at 2:30, check-in time 2:00. Patient declines scheduling until she speaks with her son as he provides transportation. H old put on the appointment time, will wait for return call. documented in this encounter Plan of Treatment Not on filedocumented as of this encounter Visit Diagnoses Not on filedocumented in this encounter"
--- OUTSIDE RECORDS SUMMARY | ~2020-05-11 | XMS | Encounter Summary ---
Demographics + + + | Address | [address] | | | [place] [address] | + + + | Home Phone | | + + + | Preferred Language | Unknown | + + + | Marital Status | | + + + | Taoist Affiliation | Unknown | + + + | Race | Unknown | + + + | Ethnic Group | Unknown | + + + Author + + + | Author | [facility] | | | and [place] | + + + | Organization | [facility] | | | and [place] | + + + | Address | Unknown | + + + | Phone | Unavailable | + + + Support + + + + + | Name | Relationship | Address | Phone | + + + + + | Nayan Reynolds | ECON | [address] | | | | | [place] | | | | | [address] | | + + + + + Care Team Providers + +------+ + | Care Prescriptionist Name | Role | Phone | + +------+ + | Jakob Springer | PCP | | | MD | | | + +------+ + Encounter Details +--------+ + + + + | Date | Type | Department | Care Team | Description | +--------+ + + + + | 04/08/ | Abstract | [facility] | Brody Darling, | Bundle branch block, | | 2016 | | CARDIOLOGY [address] | [address] | right (Primary Dx); | | | | [place], | [place], | Cystitis, subacute; | | | | [place] [address] | [place] [id number] | Essential | | | | [phone] | [phone] | hypertension, | | | | | | benign; | | | | | | Gastroesophageal | | | | | | reflux disease, | | | | | | esophagitis presence | | | | | | not specified; | | | | | | Right | | | | | | nephrolithiasis; | | | | | | Osteoporosis, | | | | | | postmenopausal; | | | | | | Vitamin D deficiency | +--------+ + + + + Social [...] + + documented as of this encounter Plan of Treatment Not on filedocumented as of this encounter Visit Diagnoses + + | Diagnosis | + + | Bundle branch block, right - Primary Right bundle branch block | + + | Cystitis, subacute Other chronic cystitis | + + | Essential hypertension, benign | + + | Gastroesophageal reflux disease, esophagitis presence not specified | + + | Right nephrolithiasis | + + | Osteoporosis, postmenopausal Senile osteoporosis | + + | Vitamin D deficiency Unspecified vitamin D deficiency | + + documented in this encounter"
--- OUTSIDE RECORDS SUMMARY | ~2020-05-11 | XMS | Encounter Summary ---
Demographics + + + | Address | [address] | | | [place] [address] | + + + | Home Phone | | + + + | Preferred Language | Unknown | + + + | Marital Status | | + + + | Yarsanism Affiliation | Unknown | + + + | Race | Unknown | + + + | Ethnic Group | Unknown | + + + Author + + + | Author | [facility] | | | and [place] | + + + | Organization | [facility] | | | and [place] | + + + | Address | Unknown | + + + | Phone | Unavailable | + + + Support + + + + + | Name | Relationship | Address | Phone | + + + + + | Nayan Reynolds | ECON | [address] | | | | | [place] | | | | | [address] | | + + + + + Care Team Providers + +------+ + | Care Philosophy Lecturer Name | Role | Phone | + +------+ + | Jakob Springer PCP | | | MD | | | + +------+ + Reason for Visit + +--------+ + | Reason | Onset | Comments | | | Date | | + +--------+ + | Appointment | 04/22/ | MAY RECALL | | | 2016 | | + +--------+ + Encounter Details +--------+ + + + + | Date | Type | Department | Care Team | Description | +--------+ + + + + | 04/22/ | Telephone | [facility] | Brody Darling, | Appointment (MAY | | 2016 | | CARDIOLOGY [address] | [address] [place] | RECALL) | | | | [place], | [place], | | | | | [place] [address] | [place] [address] | | | | | [phone] | [phone] | | | | | | | [...] this encounter Miscellaneous Notes Telephone Encounter - Angelica Edouard - 04/22/2017 4:28 PM PDTPatient last saw Dr. Fernandes on 05-10-16 and was told to follow up as needed. Called patient to offer a yearly follow up. She declined and stated she is not having any issues but would call our office if she needed to. documented in this encounte r Plan of Treatment Not on filedocumented as of this encounter Visit Diagnoses Not on filedocumented in this encounter"
--- OUTSIDE RECORDS SUMMARY | ~2020-05-11 | XMS | Encounter Summary ---
Demographics + + + | Address | [address] | | | [place] [address] | + + + | Home Phone | | + + + | Preferred Language | Unknown | + + + | Marital Status | | + + + | Congregational Affiliation | Unknown | + + + | Race | Unknown | + + + | Ethnic Group | Unknown | + + + Author + + + | Author | [facility] | | | and [place] | + + + | Organization | [facility] | | | and [place] | + + + | Address | Unknown | + + + | Phone | Unavailable | + + + Support + + + + + | Name | Relationship | Address | Phone | + + + + + | Nayan Reynolds | ECON | [address] | | | | | [place] | | | | | [address] | | + + + + + Care Team Providers + +------+ + | Care Precision Agriculture Specialist Name | Role | Phone | + +------+ + | Jakob Springer PCP | | | MD | | | + +------+ + Encounter Details +--------+ + + + + | Date | Type | Department | Care Team | Description | +--------+ + + + + | 04/18/ | Hospital | [facility] | JanMario Alberto burks, | Calculus of kidney | | 2017 | Encounter | MED CTR XRAY [address] | [address] | | | | | [place] | [facility] [address] | | | | | [place] [address] | | | | | | [phone] | [address] | | | | | | [phone] | | | | | | | [...] | + +--------+ + + + | XR ABDOMEN AP | Routin | 04/18/2017 | Calculus of kidney | Results for this | | | e | 10:05 AM | | procedure are in the | | | | PDT | | results section. | + +--------+ + + + documented in this encounter Results XR Abdomen AP (04/18/2017 10:05 AM PDT) + + | Specimen | + + | | + + + + + | Narrative | Performed At | + + + | TWO VIEW ABDOMEN 04/18/2017 10:04 AM CLINICAL HISTORY: Calculus | [facility] | | of kidney COMPARISON: CT July 2016 FINDINGS: Previously | | | noted large right renal pelvic calculus is not visible. A small | | | rounded calcific density now projects at the level of the inferior | | | right renal pole. Pelvic calcifications likely correspond with | | | vascular calcification and a potential surgical staple line on | | | previous imaging. There is a small volume of stool throughout the | | | left colon without overt evidence of bowel obstruction. Mild | | | rightward lumbar curvature is present. There is generalized | | | osteopenia. IMPRESSION - 1. NON-VISUALIZATION OF THE | | | PREVIOUSLY DESCRIBED LARGE RIGHT RENAL PELVIC CALCULUS, WITH A SMALL | | | CALCULUS NOW SUGGESTED IN THE INFERIOR RIGHT KIDNEY. 2. | | | OSTEOPENIA AND RIGHTWARD LUMBAR CURVATURE. Dictated and Signed | | | by: Jam Medel MD Electronically signed: 04/18/2017 10:46 AM | | + + + + + | Procedure Note | + + | Olu, Rad Results In - 04/18/2017 10:49 AM PDT TWO VIEW ABDOMEN 04/18/2017 10:04 AM | | | | CLINICAL HISTORY: Calculus of kidney | | | | COMPARISON: CT July 2016 | | | | FINDINGS: Previously noted large right renal pelvic calculus is not visible. A | | small rounded calcific density now projects at the level of the inferior right | | renal pole. Pelvic calcifications likely correspond with vascular calcification | | and a potential surgical staple line on previous imaging. There is a small | | volume of stool throughout the left colon without overt evidence of bowel | | obstruction. Mild rightward lumbar curvature is present. There is generalized | | osteopenia. | | | | IMPRESSION - | | | | 1. NON-VISUALIZATION OF THE PREVIOUSLY DESCRIBED LARGE RIGHT RENAL PELVIC | | CALCULUS, WITH A SMALL CALCULUS NOW SUGGESTED IN THE INFERIOR RIGHT KIDNEY. | | | | 2. OSTEOPENIA AND RIGHTWARD LUMBAR CURVATURE. | | | | Dictated and Signed by: Jam Medel MD | | Electronically signed: 04/18/2017 10:46 AM | + + + +---------+ + + [...]
--- OUTSIDE RECORDS SUMMARY | ~2020-05-11 | XMS | Encounter Summary ---
Demographics + + + | Address | [address] | | | [place] [address] | + + + | Home Phone | | + + + | Preferred Language | Unknown | + + + | Marital Status | | + + + | Sikh Affiliation | Unknown | + + + | Race | Unknown | + + + | Ethnic Group | Unknown | + + + Author + + + | Author | [facility] | | | and [place] | + + + | Organization | [facility] | | | and [place] | + + + | Address | Unknown | + + + | Phone | Unavailable | + + + Support + + + + + | Name | Relationship | Address | Phone | + + + + + | Nayan Reynolds | ECON | [address] | | | | | [place] | | | | | [address] | | + + + + + Care Team Providers + +------+ + | Care Hash Slinger Name | Role | Phone | + [...] | | | | Abnormal | MD Brody | Medicine | | | | | electrocardi | [address] | [address] | | | | | ogram (ECG) | [address] | [place], | | | | | (EKG) | [place], | [place] | | | | | Encounter | [place] [address] | [address] | | | | | for other | Phone: | Phone: | | | | | preprocedura | [phone] | [phone] | | | | | l | Fax: | Fax: | | | | | examination | [phone] | [phone] | | | | | Procedures | [...] | | | | | | STUDIES DE | | | | | | | CV STRS TST | | | | | | | XERS&/OR RX | | | | | | | CONT ECG W/O | | | | | | | I&R DE | | | | | | | [...] Radiology | Diagnoses | Phong, | [facility] | | | | | Abnormal | MD Brody | Medicine | | | | | electrocardi | [address] | [address] | | | | | ogram (ECG) | [address] | [place], | | | | | (EKG) | [place], | [place] | | | | | Encounter | [place] [address] | [address] | | | | | for other | Phone: | Phone: | | | | | preprocedura | [phone] | [phone] | | | | | l | Fax: | Fax: | | | | | examination | [phone] | [phone] | | | | | Procedures | [...] | | | | | | STUDIES DE | | | | | | | CV STRS TST | | | | | | | XERS&/OR RX | | | | | | | CONT ECG W/O | | | | | | | I&R DE | | | | | | | [...] + + | 04/21/ | Hospital | [facility] | Brody Darling, | Pre-op exam; | | 2015 | Encounter | MED CTR NUCLEAR | MD [address] [facility] | Abnormal EKG | | | | MEDICINE [address] | [place], | | | | | [place], | [place] [address] | | | | | [place] [address] | [phone] | | | | | [phone] | | | +--------+ + + + [...] | + +--------+ + + + | NM NUCLEAR STRESS | Routin | 04/21/2016 | Pre-op exam | Results for this | | TEST (PHARMACOLOGIC | e | 1:27 PM | Abnormal EKG | procedure are in the | | - VASODILATOR) | | PDT | | results section. [...] wall thickness. Preserved left ventricular systolic | [facility] | | function. LVEF by gated SPECT 80 %. Signed by: Brody | - IMAGING | | MD Phong [facility] 04/21/2016, 13:27 | | + + + + + + | Narrative | Performed At | + + + | NUCLEAR MEDICINE STRESS TEST REPORT | [facility] | | Patient Name: Neisha Sanders Study Date: 04/21/2016 Primary | [facility] | | Care Provider: Jakob Springer MD : | [facility] | | 1940 Age: 75 y.o. [...] | + + + + + | [address] | [address] | [place], [place] | [phone] | | [facility] | | [address] | | | - IMAGING | | | | + + + + + documented in this encounter Visit Diagnoses + + | Diagnosis | + + | Pre-op exam Preoperative examination, unspecified | + + | Abnormal EKG Nonspecific abnormal electrocardiogram (ECG) (EKG) | + + documented in this encounter Administered Medications + +--------+ +-------+------+------+ | Medication Order | MAR | Action | Dose | Rate | Site | | | Action | Date | | | | + +--------+ +-------+------+------+ | aminophylline injection 75 mg | Given | 04/21/20 | 75 mg | | | | 75 mg, Intravenous, ONCE PRN, | | 16 9:43 | | | | | protocol, Starting 04/21/16 at | | AM PDT | | | | | 0855, For 1 dose, Nuclear | | | | | | | Medicine | | | | | | + +--------+ +-------+------+------+ +---+---+ | | | +---+---+ + +-------+ + +--------+---+ | dipyridamole (PERSANTINE) 60mg | Given | 04/21/20 | 10.4938 | 419.8 | | | in 40 mL NS syringe 0.142 | | 16 9:15 | mg/min | mL/hr | | | mg/kg/min | | AM PDT | | | | | 73.9 kg (419.752 mL/hr, rounded | | | | | | | to 419.8 mL/hr), Intravenous, | | | | | | | Administer over 4 Minutes, ONCE, | | | | | | | Tue04/21/16 at 0915, For 1 dose, | | | | | | | Nuclear Medicine | | | | | | + +-------+ + +--------+---+ +---+---+ | | | +---+---+ + +-------+ + +---+---+ | technetium TC-99M sestamibi | Given | 04/21/20 | 10.4 | | | | (CARDIOLITE) injection 9 | | 16 8:55 | -millicu | | | | millicurie 9 -millicurie, | | AM PDT | shahbaz | | | | Intravenous, ONCE PRN, Other, | | | | | | | Starting 04/21/16 at 0855, For | | | | | | | 1 dose, Nuclear Medicine | | | | | | + +-------+ + +---+---+ +---+---+ | | | +---+---+ documented in this encounter"
--- OUTSIDE RECORDS SUMMARY | ~2020-05-11 | XMS | Encounter Summary ---
Demographics + + + | Address | [address] | | | [place] [address] | + + + | Home Phone | | + + + | Preferred Language | Unknown | + + + | Marital Status | | + + + | Muslim Affiliation | Unknown | + + + | Race | Unknown | + + + | Ethnic Group | Unknown | + + + Author + + + | Author | [facility] | | | and [place] | + + + | Organization | [facility] | | | and [place] | + + + | Address | Unknown | + + + | Phone | Unavailable | + + + Support + + + + + | Name | Relationship | Address | Phone | + + + + + | Nayan Reynolds | ECON | [address] | | | | | [place] | | | | | [address] | | + + + + + Care Team Providers + +------+ + | Care Wheel Tuner Name | Role | Phone | + [...] electrocardi | [address] | [address] | | | | | ogram (ECG) | [address] | [place], | | | | | (EKG) | [place], | [place] | | | | | Encounter | [place] [address] | [address] | | | | | for other | Phone: | Phone: | | | | | preprocedura | [phone] | [phone] | | | | | l | Fax: | Fax: | | | | | examination | [phone] | [phone] | | | | | Procedures | [...] | | | | | | STUDIES [place] | | | | | | | CV STRS TST | | | | | | | XERS&/OR RX | | | | | | | CONT ECG W/O | | | | | | | I&R [place] | | | | | | | [...] exam | MD Jerrica | [address] | | | | | Abnormal | [address] | [place], | | | | | EKG | [address] | [place] | | | | | Procedures | [place], | [address] | | | | | ECHO | [place] [address] | Phone: | | | | | Complete [place] | Phone: | [phone] | | | | | ECHO HEART | [phone] | Fax: | | | | | XTHORACIC,[place] | Fax: | [phone] | | | | | MPLETE W | [phone] | | | | | | DOPPLER [place] | | | | | | | [...] EKG RBBB | MD Saurabh | [address] | | | | | Preop | [address] | | | | | cardiovascul | Gavin Reyes | [place], | | | | | ar exam | [place] | [place] [address] | | | | | Procedures | [place] | Phone: | | | | | DREDGE CAP[place] | [address] | [phone] | | | | | | Phone: | Fax: | | | | | | [phone] | [phone] | | | | | | Fax: | | | | | | | [phone] | | +--------+--------+ + + + + Encounter Details +--------+---------+ + + + | Date | Type | Department | Care Team | Description | +--------+---------+ + + + | 04/14/ | Office | [facility] | Jerrica Darling, | RBBB (Primary Dx); | | 2015 | Visit | CARDIOLOGY [address] | Pre-op exam; | | | | [place], | [place], | Abnormal EKG | | | | [place] [address] | [place] [address] | | | | | [phone] | [phone] | | | | | | | [...] office visit on 03/25/16. Referr al to dashboard developer for preop clearance ASSESSMENT: 1. Right bundle-branch [...] She is in a class II of [place] [employer] functional class. There is 1+ [...] weeks. Electronically signed by: Jerrica Darling MD [facility] 04/14/2016 Portions of this chart may have been created with [employer] voice recognition software. Occasi onal wrong-word or [...] wall thickness. Preserved left ventricular systolic | [facility] | | function. LVEF by gated SPECT 80 %. Signed by: Jerrica | - IMAGING | | MD Phong [facility] 04/21/2016, 13:27 | | + + [...] + | [facility] [facility] | [address] | [place] | [phone] | | [facility] | | [address] | | | - IMAGING | | | | + + + + + ECHO Complete (04/21/2016 8:50 AM PDT) + + | Specimen | + + | | + + + + ----+ | Narrative | Performed At | + + ----+ | Transthoracic | [facility] | | Echocardiography Report (TTE) Demographics Patient Name STORMY FLOWERS | | [place] Room Number A Patient Number | [facility] | | [id number] Date of Study 04/21/2016 Visit Number | - IMAGING | | [id number] Referring | | | Physician PHONG BECERRIL Number Date of 1940 | | | [employer] [place] | | | [place] | | | [place], | | | [place] Age 75 year(s) | | | Interpreting PHONG BECERRIL | | | Linen Tech JERRICA DARLING MD | | | Gender [...] Room Number Rema Patient | | Number [id number] Date of Study 04/21/2016 Visit Number [id number] | | Referring Physician PHONG BECERRIL Number Date of | | 1940 [employer] [address] | | [place], | | [place] Age 75 year(s) Interpreting PHONG | | JERRICA Linen Tech JERRICA DARLING MD Gender | | Female [...] + | [facility] | [address] | [place], [place] | [phone] | | [facility] | | [address] | | | - IMAGING | | [...] MD | | | | | | ([id number]) on 04/16/2016 | | | | | [...]
--- OUTSIDE RECORDS SUMMARY | ~2020-05-11 | XMS | Clinical Summary ---
Demographics + + + | Address | [address] | | | [place] [address] | + + + | Home Phone | | + + + | Preferred Language | Unknown | + + + | Marital Status | | + + + | Rastafari Affiliation | Unknown | + + + | Race | Unknown | + + + | Ethnic Group | Unknown | + + + Author + + + | Author | [facility] | | | and [place] | + + + | Organization | [facility] | | | and [place] | + + + | Address | Unknown | + + + | Phone | Unavailable | + + + Support + + + + + | Name | Relationship | Address | Phone | + + + + + | Nayan Reynolds | ECON | [address] | | | | | [place] | | | | | [address] | | + + + + + Care Team Providers + +------+ + | Care Ice Cream Vault Worker Name | Role | Phone | + +------+ + | Jakob Springer | PCP | | | MD | | | + +------+ + Allergies + + + + + + | Active Allergy | Reactions | Severity | Noted | Comments | | | | | Date | | + + + + + + | Codeine | Other (See Comments) | | 04/08/20 | hallucinations | | | | | 16 | | + + + + + + | Doxycycline | Diarrhea, Nausea And | | 04/08/20 | | | | Vomiting | | 16 | | + + + + + + | Penicillins | Hives, Rash | Low | 04/08/20 | | | | | | 16 | | + + + + + + | Sulfa Antibiotics | Hives, Rash | Low | 04/08/20 | | | | | | 16 | | + + + + + + Medications + + + +---------+------+------+-------+ | Medication | Sig | Dispensed | Refills | Star | End | Statu | | | | | | t | Date | s | | | | | | Date | | | + + + +---------+------+------+-------+ | ranitidine | Take 300 mg by mouth | | 0 | | | Activ | | (ZANTAC) 300 MG | nightly. | | | | | e | | capsule | | | | | | | + + + +---------+------+------+-------+ | aspirin 81 MG | Take 81 mg by mouth | | 0 | | | Activ | | tablet | Daily. | | | | | e | + + + +---------+------+------+-------+ | cyanocobalamin | Take 5,000 mcg by | | 0 | | | Activ | | (VITAMIN B-12) 500 | mouth Daily. | | | | | e | | mcg tablet | | | | | | | + + + +---------+------+------+-------+ | alendronate | Take 70 mg by mouth | | 0 | | | Activ | | (FOSAMAX) 70 mg | Once a week. | | | | | e | | tablet | | | | | | | + + + +---------+------+------+-------+ | Cholecalciferol | Take 5,000 Units by | | 0 | | | Activ | | (VITAMIN D-3) 2000 | mouth Daily. | | | | | e | | units CAPS | | | | | | | + + + +---------+------+------+-------+ Active Problems + + + | Problem | Noted Date | + + + | Abnormal EKG | 04/21/2016 | + + + + + | Overview: Echocadriogram, 04/21/2016 shows normal left | | ventricular size, wall thickness and motion, preserved left | | ventricular systolic function, LVEF is 65%, grade 1 left | | ventricular diastolic dysfunction, normal valvular structure, | | normal right-sided pressure, normal IVC with normal respiratory | | collapse. | + + + + + | Other chest pain | 04/21/2016 | + + + + + | Overview: Persantine Sestamibi Stress Test, 04/21/2016 shows | | Persantine EKG is negative, normal Persantine Sestamibi | | myocardial perfusion study with a normal left ventricular size | | and wall thickness, preserved left ventricular systolic | | function, LVEF by gated SPECT 80 %. | + + + +---+ | Bundle branch block, right | | + +---+ | Cystitis, subacute | | + +---+ | Essential hypertension, benign | | + +---+ | GERD (gastroesophageal reflux disease) | | + +---+ | Right nephrolithiasis | | + +---+ | Osteoporosis, postmenopausal | | + +---+ | Vitamin D deficiency | | + +---+ Family History + + +------+ + | Medical History | Relation | Name | Comments | + + +------+ + | Cirrhosis | Father | | | + + +------+ + | Diabetes | Mother | | | + + +------+ + | Heart disease | Mother | | arteriosclerotic | + + +------+ + + +------+ + + | Relation | Name | Status | Comments | + +------+ + + | Brother | | Alive | | + +------+ + + | Brother | | Alive | | + +------+ + + | Brother | | | | + +------+ + + | Brother | | | | + +------+ + + | Father | | | | | | | (Age | | | | | 58) | | + +------+ + + | Mother | | | | | | | (Age | | | | | 62) | | + +------+ + + | Sister | | Alive | | + +------+ + + | Sister | | Alive | | + +------+ + + | Sister | | Alive | | + +------+ + + | Sister | | Alive | | + +------+ + + | Sister | | | | + +------+ + + | Sister | | | | + +------+ + + | Sister | | | | + +------+ + + | Sister | | | | + +------+ + + Social History + +-------+ +--------+------+ [...] on file | | + + + Last Filed Vital Signs + + + + + | Vital Sign | Reading | Time Taken | Comments | + + + + + | Blood Pressure | 130/80 | 05/10/2016 3:40 PM | right arm | | | | PDT | | + + + + + | Pulse | 80 | 05/10/2016 3:40 PM | regular | | | | PDT | | + + + + + | Temperature | - | - | | + + + + + | Respiratory Rate | 16 | 05/10/2016 3:40 PM | | | | | PDT | | + + + + + | Oxygen Saturation | - | - | | + + + + + | Inhaled Oxygen | - | - | | | Concentration | | | | + + + + + | Weight | 73.6 kg (162 lb 3.2 | 05/10/2016 3:40 PM | | | | oz) | PDT | | + + + + + | Height | 160 cm (5' 3") | 05/10/2016 3:40 PM | | | | | PDT | | + + + + + | Body Mass Index | 28.73 | 05/10/2016 3:40 PM | | | | | PDT | | + + + + + Plan of Treatment + + +-------+ + | Health Maintenance | Due Date | Last | Comments | | | | Done | | + + +-------+ + | Vaccine: | | | | | Dtap/Tdap/Td (1 - | 0 | | | | Tdap) | | | | + + +-------+ + | Vaccine: Zoster (1 | | | | | of 2) | 1 | | | + + +-------+ + | Breast Cancer | | | | | Screening | 6 | | | + + +-------+ + | Vaccine: | | | | | Pneumococcal 65+ (1 | 6 | | | | of 1 - PPSV23) | | | | + + +-------+ + | Vaccine: Influenza | | | | | (#1) | 0 | | | + + +-------+ + Results Not on filefrom Last 3 Months Insurance + +--------+ +--------+ +---------+--------+ | Payer | Benefi | Subscriber | Effect | Phone | Address | Type | | | t Plan | ID | aaron | | | | | | / | | Dates | | | | | | Group | | | | | | + +--------+ +--------+ +---------+--------+ | MEDICARE | MEDICA | [id number] | 10/10/19 | [phone] | | Medica | | | RE | | 06-Pre | 5 | | re | | | PART A | | sent | | | | | | AND B | | | | | | + +--------+ +--------+ +---------+--------+ | MEDICARE SUPPLEMENT | MEDICA | [id number] | 10/10/19 | [phone] | | Indemn | | OTHER | RE | | 17-Pre | 0 | | ity | | | SUPPLE | | sent | | | | | | MENT | | | | | | | | OTHER | | | | | | + +--------+ +--------+ +---------+--------+ + +--------+ +--------+ + + | Guarantor Name | Accoun | Relation to | Date | Phone | Billing Address | | | t Type | Patient | of | | | | | | | | | | + +--------+ +--------+ + + | Sanders,Neisha | Person | Self | [birth year] | | [address] | | [place] | al/Fam | | 1941 | [phone] | [place] [address] | | | maame | | | 1 (Home) | | + +--------+ +--------+ + + Advance Directives + + + + + | Type | Date Recorded | Patient | Explanation | | | | Call Centre Supervisor | | + + + + + | Power of | | | | | Cap Cutter | | | | + + + + + | Advance | 04/21/2016 7:40 | | | | Directive | AM | | | + + + + +
--- OUTSIDE RECORDS SUMMARY | ~2020-05-11 | XMS | Encounter Summary ---
Demographics + + + | Address | [address] | | | [place] [address] | + + + | Home Phone | | + + + | Preferred Language | Unknown | + + + | Marital Status | | + + + | Restoration Affiliation | Unknown | + + + | Race | Unknown | + + + | Ethnic Group | Unknown | + + + Author + + + | Author | [facility] | | | and [place] | + + + | Organization | [facility] | | | and [place] | + + + | Address | Unknown | + + + | Phone | Unavailable | + + + Support + + + + + | Name | Relationship | Address | Phone | + + + + + | Nayan Reynolds | ECON | [address] | | | | | [place] | | | | | [address] | | + + + + + Care Team Providers + +------+ + | Care Density Control Puncher Name | Role | Phone | + [...] electrocardi | [address] | [address] | | | | | ogram (ECG) | [address] | [place], | | | | | (EKG) | [place], | [place] | | | | | Encounter | [place] [address] | [address] | | | | | for other | Phone: | Phone: | | | | | preprocedura | [phone] | [phone] | | | | | l | Fax: | Fax: | | | | | examination | [phone] | [phone] | | | | | Procedures | [...] | | | | | | STUDIES [place] | | | | | | | CV STRS TST | | | | | | | XERS&/OR RX | | | | | | | CONT ECG W/O | | | | | | | I&R [place] | | | | | | | [...] electrocardi | [address] | [address] | | | | | ogram (ECG) | [address] | [place], | | | | | (EKG) | [place], | [place] | | | | | Encounter | [place] [address] | [address] | | | | | for other | Phone: | Phone: | | | | | preprocedura | [phone] | [phone] | | | | | l | Fax: | Fax: | | | | | examination | [phone] | [phone] | | | | | Procedures | [...] | | | | | | STUD[place] | | | | | | | CV STRS TST | | | | | | | XERS&/OR RX | | | | | | | CONT ECG W/O | | | | | | | I&R [place] | | | | | | | [...] + + | 04/21/ | Hospital | [facility] | Brody Darling, | Pre-op exam; | | 2015 | Encounter | MED CTR NUCLEAR | MD [address] [facility] | Abnormal EKG | | | | MEDICINE [address] | [address] [place], | | | | | [place], | [place] [address] | | | | | [place] [address] | [phone] | | | | | [phone] | | | +--------+ + + + [...] wall thickness. Preserved left ventricular systolic | [facility] | | function. LVEF by gated SPECT 80 %. Signed by: Brody | - IMAGING | | MD Phong [facility] 04/21/2016, 13:27 | | + + + + + + | Narrative | Performed At | + + + | NUCLEAR MEDICINE STRESS TEST REPORT | [facility] | | Patient Name: Neisha Sanders Study Date: 04/21/2016 Primary | [facility] | | Care Provider: Jakob Springer MD : | [facility] | | 1940 Age: 75 y.o. [...] [address] | [address] | [place], [place] | [phone] | | [facility] | | [address] | | | - IMAGING | | [...]
--- OUTSIDE RECORDS SUMMARY | ~2020-05-11 | XMS | Encounter Summary ---
Demographics + + + | Address | [address] | | | [place] [address] | + + + | Home Phone | | + + + | Preferred Language | Unknown | + + + | Marital Status | | + + + | Gnosticism Affiliation | Unknown | + + + | Race | Unknown | + + + | Ethnic Group | Unknown | + + + Author + + + | Author | [facility] | | | and [place] | + + + | Organization | [facility] | | | and [place] | + + + | Address | Unknown | + + + | Phone | Unavailable | + + + Support + + + + + | Name | Relationship | Address | Phone | + + + + + | Nayan Reynolds | ECON | [address] | | | | | [place] | | | | | [address] | | + + + + + Care Team Providers + +------+ + | Care Fretted Instruments Inspector Name | Role | Phone | + +------+ + | Jakob Springer | PCP | | | MD | | | + +------+ + Encounter Details +--------+ + + + + | Date | Type | Department | Care Team | Description | +--------+ + + + + | 04/08/ | Abstract | [facility] | Brody Darling, | Bundle branch block, | | 2016 | | CARDIOLOGY [address] [place] | right (Primary Dx); | | | | [place], | [place], | Cystitis, subacute; | | | | [place] [address] | [place] [address] | Essential | | | | [phone] | [phone] | hypertension, | | | | | [...]
--- OUTSIDE RECORDS SUMMARY | ~2020-05-11 | XMS | Encounter Summary ---
Demographics + + + | Address | [address] | | | [place] [address] | + + + | Home Phone | | + + + | Preferred Language | Unknown | + + + | Marital Status | | + + + | Christianity Affiliation | Unknown | + + + | Race | Unknown | + + + | Ethnic Group | Unknown | + + + Author + + + | Author | [facility] | | | and [place] | + + + | Organization | [facility] | | | and [place] | + + + | Address | Unknown | + + + | Phone | Unavailable | + + + Support + + + + + | Name | Relationship | Address | Phone | + + + + + | Nayan Reynolds | ECON | [address] | | | | | [place] | | | | | [address] | | + + + + + Care Team Providers + +------+ + | Care Metal Bonding Crib Attendant Name | Role | Phone | + +------+ + | Jakob Springer | PCP | | | MD | | | + +------+ + Reason for Visit Diagnostic/Screening (Routine) +--------+--------+ [...] electrocardi | [address] [place] | | | | | ogram (ECG) | [address] | [place], | | | | | (EKG) | [place], | [place] | | | | | Encounter | [place] [address] | [address] | | | | | for other | Phone: | Phone: | | | | | preprocedura | [phone] | [phone] | | | | | l | Fax: | Fax: | | | | | examination | [phone] | [phone] | | | | | Procedures | [...] + + | 04/21/ | Hospital | [facility] | Brody Darling, | | | 2016 | Encounter | MED CTR NUCLEAR | MD [address] [place] | | | | | MEDICINE [address] | [address] [place], | | | | | [place], | [place] [address] | | | | | [place] [address] | [phone] | | | | | [phone] | | | +--------+ + + + [...] + documented in this encounter Visit Diagnoses Not on filedocumented in this encounter Administered Medications + +--------+ + +------+------+ | Medication Order | MAR | Action | Dose | Rate | Site | | | Action | Date | | | | + +--------+ + +------+------+ | technetium TC-99M sestamibi | Given | 04/21/20 | 34.1 | | | | (CARDIOLITE) injection | | 16 12:40 | -millicu | | | | millicurie 30 -millicurie, | | PM PDT | shahbaz | | | | Intravenous, ONCE PRN, Other, | | | | | | | Starting 04/21/16 at 1239, For | | | | | | | 1 dose, Nuclear Medicine | | | | | | + +--------+ + +------+------+ +---+---+ | | | +---+---+ documented in this encounter"
--- OUTSIDE RECORDS SUMMARY | ~2020-05-11 | XMS | Encounter Summary ---
Demographics + + + | Address | [address] | | | [place] [address] | + + + | Home Phone | | + + + | Preferred Language | Unknown | + + + | Marital Status | | + + + | Orthodoxy Affiliation | Unknown | + + + | Race | Unknown | + + + | Ethnic Group | Unknown | + + + Author + + + | Author | [facility] | | | and [place] | + + + | Organization | [facility] | | | and [place] | + + + | Address | Unknown | + + + | Phone | Unavailable | + + + Support + + + + + | Name | Relationship | Address | Phone | + + + + + | Nayan Reynolds | ECON | [address] | | | | | [place] | | | | | [address] | | + + + + + Care Team Providers + +------+ + | Care Hat Measurer Name | Role | Phone | + +------+ + | Jakob Springer PCP | | | MD | | | + +------+ + Encounter Details +--------+ + + + + | Date | Type | Department | Care Team | Description | +--------+ + + + + | 04/09/ | Abstract | [facility] | Brody Darling, | | | 2016 | | CARDIOLOGY [address] | MD [address] [place] | | | | | [place], | [place], | | | | | [place] [address] | [place] [address] | | | | | [phone] | [phone] | | | | | | | [...] | + +--------+ + + + | EXTERNAL LAB: RIGO | Routin | 08/22/2015 | | Results for this | | | e | | | procedure are in the | | | | | | results section. | + +--------+ + + + | EXTERNAL LAB: | Routin | 08/22/2015 | | Results for this | | GLUCOSE | e | | | procedure are in the | | | | | | results section. | + +--------+ + + + | EXTERNAL LAB: ALT | Routin | 08/22/2015 | | Results for this | | | e | | | procedure are in the | | | | | | results section. | + +--------+ + + + | EXTERNAL LAB: AST | Routin | 08/22/2015 | | Results for this | | | e | | | procedure are in the | | | | | | results section. | + +--------+ + + + | EXTERNAL LAB: | Routin | 08/22/2015 | | Results for this | | ALKALINE PHOSPHATASE | e | | | procedure are in the | | | | | | results section. | + +--------+ + + + | EXTERNAL LAB: | Routin | 08/22/2015 | | Results for this | | BILIRUBIN, TOTAL | e | | | procedure are in the | | | | | | results section. | + +--------+ + + + | EXTERNAL LAB: | Routin | 08/22/2015 | | Results for this | | ALBUMIN | e | | | procedure are in the | | | | | | results section. | + +--------+ + + + | EXTERNAL LAB: | Routin | 08/22/2015 | | Results for this | | PROTEIN, TOTAL | e | | | procedure are in the | | | | | | results section. | + +--------+ + + + | EXTERNAL LAB: | Routin | 08/22/2015 | | Results for this | | CALCIUM | e | | | procedure are in the | | | | | | results section. | + +--------+ + + + | EXTERNAL LAB: CARBON | Routin | 08/22/2015 | | Results for this | | DIOXIDE | e | | | procedure are in the | | | | | | results section. | + +--------+ + + + | EXTERNAL LAB: | Routin | 08/22/2015 | | Results for this | | CHLORIDE | e | | | procedure are in the | | | | | | results section. | + +--------+ + + + | EXTERNAL LAB: | Routin | 08/22/2015 | | Results for this | | POTASSIUM | e | | | procedure are in the | | | | | | results section. | + +--------+ + + + | EXTERNAL LAB: SODIUM | Routin | 08/22/2015 | | Results for this | | | e | | | procedure are in the | | | | | | results section. | + +--------+ + + + | EXTERNAL LAB: CBC | Routin | 08/22/2015 | | Results for this | | | e | | | procedure are in the | | | | | | results section. | + +--------+ + + + | EXTERNAL LAB: | Routin | 08/22/2015 | | Results for this | | PROTIME INR | e | | | procedure are in the | | | | | | results section. | + +--------+ + + + | EXTERNAL LAB: EGFR | Routin | 08/22/2015 | | Results for this | | | e | | | procedure are in the | | | | | | results section. | + +--------+ + + + | EXTERNAL LAB: | Routin | 08/22/2015 | | Results for this | | CREATININE | e | | | procedure are in the | | | | | | results section. | + +--------+ + + + | CBC WITH | Routin | 08/22/2015 | | Results for this | | DIFFERENTIAL | e | | | procedure are in the | | | | | | results section. | + +--------+ + + + | COMPREHENSIVE | Routin | 08/22/2015 | | Results for this | | METABOLIC PANEL | e | | | procedure are in the | | | | | | results section. | + +--------+ + + + documented in this encounter Results CBC with Differential (08/22/2015) + +-------+ + + + | Component | Value | Ref Range | Performed | Pathologist | | | | | At | Signature | + +-------+ + + + | MCH | 28.0 | 26.0 - 33.0 pg | | | + +-------+ + + + | MCHC | 34.0 | 30.0 - 36.0 % | | | + +-------+ + + + | % Basophils | 0.0 | 1.0 % | | | + +-------+ + + + + + | Specimen | + + | Blood specimen | | (specimen) | + + External Lab: CBC (08/22/2015) + + + + + + | Component | Value | Ref Range | Performed | Pathologist | | | | | At | Signature | + + + + + + | WBC, | 13.6 (A) | 4.5 - 11 | EXTERNAL | | | External | | | LAB | | + + + + + + | HGB, | 15.3 | 12 - 16 | EXTERNAL | | | External | | | LAB | | + + + + + + | HCT, | 45.6 (A) | 35 - 45 | EXTERNAL | | | External | | | LAB | | + + + + + + | PLT, | 223 | 140 - 440 | EXTERNAL | | | External | | | LAB | | + + + + + + | Neutrophils | 82.5 (A) | 39 - 80 | EXTERNAL | | | %, | | | LAB | | | External | | | | | + + + + + + | Lymphocytes | 12.6 (A) | 24 - 44 | EXTERNAL | | | %, | | | LAB | | | External | | | | | + + + + + + | Monocytes | 4.7 | 0 - 12 | EXTERNAL | | | %, External | | | LAB | | + + + + + + | Eosinophils | 0.2 | 0 - 6 | EXTERNAL | | | %, | | | LAB | | | External | | | | | + + + + + + | RBC, | 5.37 (A) | 3.8 - 5.1 | EXTERNAL | | | External | | | LAB | | + + + + + + | MCV, | 85 | 81 - 99 | EXTERNAL | | | External | | | LAB | | + + + + + + | RDW, | 12.7 | 10.5 - 15 | EXTERNAL | | | External | | | LAB | | + + + + + + + + | Resulting Agency Comment | + + | [facility] | + + + +---------+ + + | Performing | Address | City/State/Zipcode | Phone Number | | Organization | | | | + +---------+ + + | EXTERNAL LAB | | | | + +---------+ + + External Lab: Protime INR (08/22/2015) + +-------+ + + + | Component | Value | Ref Range | Performed | Pathologist | | | | | At | Signature | + +-------+ + + + | INR, | 0.9 | 0.8 - 3.5 | EXTERNAL | | | External | | | LAB | | + +-------+ + + + | PT, | 12.9 | 12.4 - 15.8 | EXTERNAL | | | External | | | LAB | | + +-------+ + + + + + | Specimen | + + | Blood specimen | | (specimen) | + + + + | Resulting Agency Comment | + + | [facility] | + + + +---------+ + + | Performing | Address | City/State/Zipcode | Phone Number | | Organization | | | | + +---------+ + + | EXTERNAL LAB | | | | + +---------+ + + Comprehensive Metabolic Panel (08/22/2015) + +-------+ + + + | Component | Value | Ref Range | Performed | Pathologist | | | | | At | Signature | + +-------+ + + + | Anion Gap | 13 | 7 - 21 mmol/L | [facility] | | | | | | [facility] | | | | [facility] | [facility] | | | | [facility] - | | | | | | LABORATORY | | + +-------+ + + + | BUN/Creatin | 12 | 6 - 28.6 | [facility] | | | ine Ratio | | | [facility] | | | | | | [facility] | | | | | | [facility] - | | | | | | LABORATORY | | + +-------+ + + + | Globulin | 3 | 1.8 - 3.5 | [facility] | | | | | | [facility] | | | | | | [facility] | | | | | [facility] - | | | | | | LABORATORY | | + +-------+ + + + | Albumin/Shelley | 1.5 | 1.1 - 2.4 | [facility] | | | bulin Ratio | | | [facility] | | | | | | [facility] | | | | | | [facility] - | | | | | | LABORATORY | | + +-------+ + + + + + | Specimen | + + | Blood specimen | | (specimen) | + + + + + + + | Performing | Address | City/State/Zipcode | Phone Number | | Organization | | | | + + + + + | [facility] | [address] | [place] | [phone] | | [facility] | | [address] | | | - LABORATORY | | | | + + + + + External Lab: BUN (08/22/2015) + +-------+ + + + | Component | Value | Ref Range | Performed | Pathologist | | | | | At | Signature | + +-------+ + + + | BUN, | 9 | 6 - 23 | EXTERNAL | | | External | | | LAB | | + +-------+ + + + + + | Resulting Agency Comment | + + | [facility] | + + + +---------+ + + | Performing | Address | City/State/Zipcode | Phone Number | | Organization | | | | + +---------+ + + | EXTERNAL LAB | | | | + +---------+ + + External Lab: Glucose (08/22/2015) + +---------+ + + + | Component | Value | Ref Range | Performed | Pathologist | | | | | At | Signature | + +---------+ + + + | Glucose, | 111 (A) | 70 - 100 | EXTERNAL | | | External | | | LAB | | + +---------+ + + + + + | Resulting Agency Comment | + + | [facility] | + + + +---------+ + + | Performing | Address | City/State/Zipcode | Phone Number | | Organization | | | | + +---------+ + + | EXTERNAL LAB | | | | + +---------+ + + External Lab: ALT (08/22/2015) + +-------+ + + + | Component | Value | Ref Range | Performed | Pathologist | | | | | At | Signature | + +-------+ + + + | ALT, | 9 | 7 - 52 | EXTERNAL | | | External | | | LAB | | + +-------+ + + + + + | Resulting Agency Comment | + + | [facility] | + + + +---------+ + + | Performing | Address | City/State/Zipcode | Phone Number | | Organization | | | | + +---------+ + + | EXTERNAL LAB | | | | + +---------+ + + External Lab: AST (08/22/2015) + +-------+ + + + | Component | Value | Ref Range | Performed | Pathologist | | | | | At | Signature | + +-------+ + + + | AST, | 16 | 13 - 39 | EXTERNAL | | | External | | | LAB | | + +-------+ + + + + + | Resulting Agency Comment | + + | [facility] | + + + +---------+ + + | Performing | Address | City/State/Zipcode | Phone Number | | Organization | | | | + +---------+ + + | EXTERNAL LAB | | | | + +---------+ + + External Lab: Alkaline Phosphatase (08/22/2015) + +-------+ + + + | Component | Value | Ref Range | Performed | Pathologist | | | | | At | Signature | + +-------+ + + + | ALP, | 61 | 30 - 128 | EXTERNAL | | | External | | | LAB | | + +-------+ + + + + + | Resulting Agency Comment | + + | [facility] | + + + +---------+ + + | Performing | Address | City/State/Zipcode | Phone Number | | Organization | | | | + +---------+ + + | EXTERNAL LAB | | | | + +---------+ + + External Lab: Bilirubin, Total (08/22/2015) + +-------+ + + + | Component | Value | Ref Range | Performed | Pathologist | | | | | At | Signature | + +-------+ + + + | Bilirubin, | 1 | 0 - 1.2 | EXTERNAL | | | Total, | | | LAB | | | External | | | | | + +-------+ + + + + + | Resulting Agency Comment | + + | [facility] | + + + +---------+ + + | Performing | Address | City/State/Zipcode | Phone Number | | Organization | | | | + +---------+ + + | EXTERNAL LAB | | | | + +---------+ + + External Lab: Albumin (08/22/2015) + +-------+ + + + | Component | Value | Ref Range | Performed | Pathologist | | | | | At | Signature | + +-------+ + + + | Albumin, | 4.6 | 3.5 - 5 | EXTERNAL | | | External | | | LAB | | + +-------+ + + + + + | Resulting Agency Comment | + + | [facility] | + + + +---------+ + + | Performing | Address | City/State/Zipcode | Phone Number | | Organization | | | | + +---------+ + + | EXTERNAL LAB | | | | + +---------+ + + External Lab: Protein, Total (08/22/2015) + +-------+ + + + | Component | Value | Ref Range | Performed | Pathologist | | | | | At | Signature | + +-------+ + + + | Protein, | 7.6 | 6 - 8 | EXTERNAL | | | Total, | | | LAB | | | External | | | | | + +-------+ + + + + + | Resulting Agency Comment | + + | [facility] | + + + +---------+ + + | Performing | Address | City/State/Zipcode | Phone Number | | Organization | | | | + +---------+ + + | EXTERNAL LAB | | | | + +---------+ + + External Lab: Calcium (08/22/2015) + +-------+ + + + | Component | Value | Ref Range | Performed | Pathologist | | | | | At | Signature | + +-------+ + + + | Calcium, | 9.6 | 8.4 - 10.2 | EXTERNAL | | | External | | | LAB | | + +-------+ + + + + + | Resulting Agency Comment | + + | [facility] | + + + +---------+ + + | Performing | Address | City/State/Zipcode | Phone Number | | Organization | | | | + +---------+ + + | EXTERNAL LAB | | | | + +---------+ + + External Lab: Carbon Dioxide (08/22/2015) + +-------+ + + + | Component | Value | Ref Range | Performed | Pathologist | | | | | At | Signature | + +-------+ + + + | Carbon | 25 | 19 - 31 | EXTERNAL | | | Dioxide, | | | LAB | | | External | | | | | + +-------+ + + + + + | Resulting Agency Comment | + + | [facility] | + + + +---------+ + + | Performing | Address | City/State/Zipcode | Phone Number | | Organization | | | | + +---------+ + + | EXTERNAL LAB | | | | + +---------+ + + External Lab: Chloride (08/22/2015) + +-------+ + + + | Component | Value | Ref Range | Performed | Pathologist | | | | | At | Signature | + +-------+ + + + | Chloride, | 104 | 95 - 112 | EXTERNAL | | | External | | | LAB | | + +-------+ + + + + + | Resulting Agency Comment | + + | [facility] | + + + +---------+ + + | Performing | Address | City/State/Zipcode | Phone Number | | Organization | | | | + +---------+ + + | EXTERNAL LAB | | | | + +---------+ + + External Lab: Potassium (08/22/2015) + +-------+ + + + | Component | Value | Ref Range | Performed | Pathologist | | | | | At | Signature | + +-------+ + + + | Potassium, | 3.8 | 3.6 - 5.1 | EXTERNAL | | | External | | | LAB | | + +-------+ + + + + + | Resulting Agency Comment | + + | [facility] | + + + +---------+ + + | Performing | Address | City/State/Zipcode | Phone Number | | Organization | | | | + +---------+ + + | EXTERNAL LAB | | | | + +---------+ + + External Lab: Sodium (08/22/2015) + +-------+ + + + | Component | Value | Ref Range | Performed | Pathologist | | | | | At | Signature | + +-------+ + + + | Sodium, | 138 | 132 - 143 | EXTERNAL | | | External | | | LAB | | + +-------+ + + + + + | Resulting Agency Comment | + + | [facility] | + + + +---------+ + + | Performing | Address | City/State/Zipcode | Phone Number | | Organization | | | | + +---------+ + + | EXTERNAL LAB | | | | + +---------+ + + External Lab: eGFR (08/22/2015) + +-------+ + + + | Component | Value | Ref Range | Performed | Pathologist | | | | | At | Signature | + +-------+ + + + | eGFR, | 76 | 60 - 99,999 | EXTERNAL | | | External | | | LAB | | + +-------+ + + + + + | Specimen | + + | Blood specimen | | (specimen) | + + + + | Resulting Agency Comment | + + | [facility] | + + + +---------+ + + | Performing | Address | City/State/Zipcode | Phone Number | | Organization | | | | + +---------+ + + | EXTERNAL LAB | | | | + +---------+ + + External Lab: Creatinine (08/22/2015) + +-------+ + + + | Component | Value | Ref Range | Performed | Pathologist | | | | | At | Signature | + +-------+ + + + | Creatinine, | 0.75 | 0.7 - 1.18 | EXTERNAL | | | External | | | LAB | | + +-------+ + + + + + | Specimen | + + | Blood specimen | | (specimen) | + + + + | Resulting Agency Comment | + + | [facility] | + + + +---------+ + + | Performing | Address | City/State/Zipcode | Phone Number | | Organization | | | | + +---------+ + + | EXTERNAL LAB | | | | + +---------+ + + documented in this encounter Visit Diagnoses Not on filedocumented in this encounter"
--- OUTSIDE RECORDS SUMMARY | ~2020-05-11 | XMS | Encounter Summary ---
Demographics + + + | Address | [address] | | | [place] [address] | + + + | Home Phone | | + + + | Preferred Language | Unknown | + + + | Marital Status | | + + + | Buddhism Affiliation | Unknown | + + + | Race | Unknown | + + + | Ethnic Group | Unknown | + + + Author + + + | Author | [facility] | | | and [place] | + + + | Organization | [facility] | | | and [place] | + + + | Address | Unknown | + + + | Phone | Unavailable | + + + Support + + + + + | Name | Relationship | Address | Phone | + + + + + | Nayan Reynolds | ECON | [address] | | | | | [place] | | | | | [address] | | + + + + + Care Team Providers + +------+ + | Care Svp Monetization Name | Role | Phone | + [...] | CARDIOLOGY [address] | MD [address] | | | | | [place], | [place], | | | | | [place] [address] | [place] [address] | | | | | [phone] | [phone] | | | | | | | [...] [address] | [place] | [phone] | | [facility] | | [address] | | | - LABORATORY | | [...]
--- OUTSIDE RECORDS SUMMARY | ~2020-05-11 | XMS | Encounter Summary ---
Demographics + + + | Address | [address] | | | [place] [address] | + + + | Home Phone | | + + + | Preferred Language | Unknown | + + + | Marital Status | | + + + | Cheondoism Affiliation | Unknown | + + + | Race | Unknown | + + + | Ethnic Group | Unknown | + + + Author + + + | Author | [facility] | | | and [place] | + + + | Organization | [facility] | | | and [place] | + + + | Address | Unknown | + + + | Phone | Unavailable | + + + Support + + + + + | Name | Relationship | Address | Phone | + + + + + | Nayan Reynolds | ECON | [address] | | | | | [place] | | | | | [address] | | + + + + + Care Team Providers + +------+ + | Care Supervisor Agricultural Education Name | Role | Phone | + [...] + + | 03/29/ | Telephone | [facility] | Jakob Springer | Appointment | | 2016 | | CARDIOLOGY [address] | MD [address] | | | | | [place], | [place] | | | | | [place] [address] | [place] | | | | | [phone] | [address] | | | | | | [phone] | | | | | | | [...]
--- OUTSIDE RECORDS SUMMARY | ~2020-05-11 | XMS | Clinical Summary ---
Demographics + + + | Address | [address] | | | [place] [address] | + + + | Home Phone | | + + + | Preferred Language | Unknown | + + + | Marital Status | | + + + | Mu-Ism Affiliation | Unknown | + + + | Race | Unknown | + + + | Ethnic Group | Unknown | + + + Author + + + | Author | [facility] | | | and [place] | + + + | Organization | [facility] | | | and [place] | + + + | Address | Unknown | + + + | Phone | Unavailable | + + + Support + + + + + | Name | Relationship | Address | Phone | + + + + + | Nayan Reynolds | ECON | [address] | | | | | [place] | | | | | [address] | | + + + + + Care Team Providers + +------+ + | Care Carpenters Helper Name | Role | Phone | + [...] +--------+ +---------+--------+ | MEDICARE | MEDICA | [id number] | 10/10/19 | [phone] | | Medica | | | RE | | 06-Pre | 5 | | re | | | PART A | | sent | | | | | | AND B | | | | | | + +--------+ +--------+ +---------+--------+ | MEDICARE SUPPLEMENT | MEDICA | [id number] | 10/10/19 | [phone] | | Indemn [...] | Self | [birth year] | | [address] | | [place] | al/Fam | | 1941 | [phone] | [place] [address] | | | maame | | | 1 (Home) | | + +--------+ +--------+ + + Advance Directives + + + + + | Type | Date Recorded | Patient | Explanation | | | | Petrography Teacher | | + + + + + | Power of | | | | | Product Safety Consultant | | | | + + + + + | Advance | 04/21/2016 7:40 | | | | Directive | AM | | | + + + + +
--- OUTSIDE RECORDS SUMMARY | ~2020-05-11 | XMS | Encounter Summary ---
Demographics + + + | Address | [address] | | | [place] [address] | + + + | Home Phone | | + + + | Preferred Language | Unknown | + + + | Marital Status | | + + + | Catholic Affiliation | Unknown | + + + | Race | Unknown | + + + | Ethnic Group | Unknown | + + + Author + + + | Author | [facility] | | | and [place] | + + + | Organization | [facility] | | | and [place] | + + + | Address | Unknown | + + + | Phone | Unavailable | + + + Support + + + + + | Name | Relationship | Address | Phone | + + + + + | Nayan Reynolds | ECON | [address] | | | | | [place] | | | | | [address] | | + + + + + Care Team Providers + +------+ + | Care Headrig Sawyer Name | Role | Phone | + [...] + | 04/22/ | Telephone | [facility] | Brody Darling, | Appointment (MAY | | 2016 | | CARDIOLOGY [address] | [address] [place] | RECALL) | | | | [place], | [place], | | | | | [place] [address] | [place] [address] | | | | | [phone] | [phone] | | | | | | | [...]
--- OUTSIDE RECORDS SUMMARY | ~2020-05-11 | XMS | Encounter Summary ---
Demographics + + + | Address | [address] | | | [place] [address] | + + + | Home Phone | | + + + | Preferred Language | Unknown | + + + | Marital Status | | + + + | Scientologist Affiliation | Unknown | + + + | Race | Unknown | + + + | Ethnic Group | Unknown | + + + Author + + + | Author | [facility] | | | and [place] | + + + | Organization | [facility] | | | and [place] | + + + | Address | Unknown | + + + | Phone | Unavailable | + + + Support + + + + + | Name | Relationship | Address | Phone | + + + + + | Nayan Reynolds | ECON | [address] | | | | | [place] | | | | | [address] | | + + + + + Care Team Providers + +------+ + | Care Sap Solution Manager Consultant Name | Role | Phone | + +------+ + | Jakob Springer PCP | | | MD | | | + +------+ + Encounter Details +--------+ + + + + | Date | Type | Department | Care Team | Description | +--------+ + + + + | 04/18/ | Hospital | [facility] | JanMario Alberto burks, | Calculus of kidney | | 2017 | Encounter | MED CTR XRAY [address] | [address] | | | | | [place] | [facility] [address] | | | | | [place] [address] | [place], [place] | | | | | [phone] | [address] | | | | | | [phone] | | | | | | | [...]
--- OUTSIDE RECORDS SUMMARY | ~2020-05-11 | XMS | Encounter Summary ---
Demographics + + + | Address | [address] | | | [place] [address] | + + + | Home Phone | | + + + | Preferred Language | Unknown | + + + | Marital Status | | + + + | Mosque Affiliation | Unknown | + + + | Race | Unknown | + + + | Ethnic Group | Unknown | + + + Author + + + | Author | [facility] | | | and [place] | + + + | Organization | [facility] | | | and [place] | + + + | Address | Unknown | + + + | Phone | Unavailable | + + + Support + + + + + | Name | Relationship | Address | Phone | + + + + + | Nayan Reynolds | ECON | [address] | | | | | [place] | | | | | [address] | | + + + + + Care Team Providers + +------+ + | Care Quality Assurance/R&D Lab Technician Name | Role | Phone | + +------+ + | Jakob Springer PCP | | | MD | | | + +------+ + Reason for Visit + + + | Reason | Comments | + + + | Follow-up | | + + + | Heart Murmur | | + + + | Results | Stress Test and Echocardiogram on 04/21/2016 | + + + Encounter Details +--------+---------+ + + + | Date | Type | Department | Care Team | Description | +--------+---------+ + + + | 05/10/ | Office | [facility] | Brody Darling, | Abnormal EKG | | 2016 | Visit | CARDIOLOGY [address] [place] | (Primary Dx); Other | | | | [place], | [place], | chest pain | | | | [place] [address] | [place] [address] | | | | | [phone] | [phone] | | | | | | | [...] + + + documented in this encounter Progress Notes Brody Darling MD - 05/10/2016 3:47 PM PDTFormatting of this note might be different f rom the original. PATIENT NAME: Neisha Sanders : 1940: AGE: 75 y.o. PRIMARY CARE: Jakob Springer MD OUTPATIENT FOLLOW UP VISIT Date of Service: 05/10/2016 HISTORY OF PRESENT ILLNESS: Neisha Sanders is a 75 y.o. female with a history of osteoporosis, heart murmur, COPD, kidney stone, tipped bladder and abnormal EKG. She is being seen today for preop clearance prior to bladder surgery. She was last seen 04/14/2016 at which time she was scheduled for echocardiogram and Persantin e stress test. Since that time, patient had been doing pretty well from cardiac standpoint. There is no new specific cardiac symptoms. There is no chest pain or chest discomfort bot h at rest and on exertion. Patient denies breathlessness. There is no palpitation dizzines s or lightheadedness. There is no ankle or leg swelling. Patient can sleep on one pillow a t night without difficulty breathing. MEDICAL, SURGICAL, AND PERSONAL HISTORY Past Medical, Surgical, Family, and Social History are reviewed in EPIC. CURRENT PROBLEMS Patient Active Problem List Diagnosis Bundle branch block, right Cystitis, subacute Essential hypertension, benign GERD (gastroesophageal reflux disease) Right nephrolithiasis Osteoporosis, postmenopausal Vitamin D deficiency CURRENT MEDICATIONS Current Outpatient Prescriptions Medication Sig Dispense Refill alendronate (FOSAMAX) 70 mg tablet Take 70 mg by mouth Once a week. aspirin 81 MG tablet Take 81 mg by mouth Daily. Cholecalciferol (VITAMIN D-3) 2000 units CAPS Take 5,000 Units by mouth Daily. cyanocobalamin (VITAMIN B-12) 500 mcg tablet Take 5,000 mcg by mouth Daily. ranitidine (ZANTAC) 300 MG capsule Take 300 mg by mouth nightly. No current facility-administered medications for this visit. ALLERGIES Allergies Allergen Reactions Codeine Other (See Comments) hallucinations Doxycycline Diarrhea and Nausea And Vomiting Penicillins Hives and Rash Sulfa Antibiotics Hives and Rash ROS ROS OBJECTIVE: PHYSICAL EXAM BP 130/80 mmHg | Pulse 80 | Resp 16 | Ht 1.6 m (5' 3") | Wt 73.573 kg (162 lb 3.2 oz) | BMI 28.74 kg/m2 Physical Exam Constitutional: She appears well-developed and well-nourished. No distress. Elderly female individual, without acute distress, accompanied by her son. Neck: Normal carotid pulses, no hepatojugular reflux and no JVD present. Carotid bruit is n ot present. Cardiovascular: Normal rate, regular rhythm, S1 normal, S2 normal, intact distal pulses and normal pulses. PMI is not displaced. Exam reveals no gallop, no S3, no S4 and no friction rub. Murmur (grade 1/6 holosystolic murmur along left sternal border.) heard. Pulses: Carotid pulses are 2+ on the right side, and 2+ on the left side. Dorsalis pedis pulses are 2+ on the right side, and 2+ on the left side. Pulmonary/Chest: Effort normal and breath sounds normal. No accessory muscle usage. No resp iratory distress. She has no wheezes. She has no rhonchi. She has no rales. Minimally decreased basal bilateral lung salguero. Abdominal: Normal appearance, normal aorta and bowel sounds are normal. She exhibits no abd ominal bruit. There is no hepatosplenomegaly. There is no tenderness. Musculoskeletal: She exhibits edema (Trace bilateral ankle swelling.). Neurological: She is alert. Gait normal. Skin: Skin is warm and dry. Psychiatric: She has a normal mood and affect. Her mood appears not anxious. She does not e xhibit a depressed mood. LAB RESULTS reviewed during visit today primarily from [facility]: LIPID No results found for: CHOL, TRIG, [...] 08/22/2015 HCTEX 45.6* 08/22/2015 PLTEX 223 08/22/2015 Above data and testing is reviewed this visit; testing below is historical data unless othe rwise specified. ASSESSMENT: 1. Right bundle-branch block , preop clearance prior to bladder surgery A. Patient was found to have a complete right bundle branch block on the preop EKG. B. Echocadriogram, 04/21/2016 shows normal left ventricular size, wall thickness and motion , preserved left ventricular systolic function, LVEF is 65%, grade 1 left ventricular diasto lic dysfunction, normal valvular structure, normal right-sided pressure, normal IVC with nor mal respiratory collapse. C. Persantine Sestamibi Stress Test, 04/21/2016 shows Persantine EKG is negative, normal P ersantine Sestamibi myocardial perfusion study with a normal left ventricular size and wall thickness, preserved left ventricular systolic function, LVEF by gated SPECT 80 %. D. Today, patient had been doing pretty well from cardiac standpoint. There is no new spe cific cardiac symptoms. She is in a class II of [place] Heart Association functional class. There is trace bila teral ankle pitting edema on physical examination.. 2. Heart murmur 3. Kidney stone, tipped bladder A. Patient was recently seen by Dr. Ag for a kidney stone who planned to perform opera tion. EKG was performed and revealed a right bundle branch block. 4. History of chronic obstructive pulmonary disease A. According to her son, patient has history of COPD documented. PLAN: 1. Patient is now ready to pursue kidney stone and bladder surgery. There is no need for any further cardiac workup. She should have a low cardiovascular risk. 2. Discussed the utilization of checking alpha-1 anti-trypsin level if she has a documente d COPD. She will discuss this with her ECP. 3. Follow-up as needed. Electronically signed by: Brody Darling MD [facility] 05/10/2016 Portions of this chart may have been created with [employer] voice recognition software. Occasi onal wrong-word or sound-alike substitutions may have occurred due to the inherent paz itations of voice recognition software. Please read the chart carefully and recognize, using context, where these substitutions have occurred. documented in this encounter Plan of Treatment Not on filedocumented as of this encounter Visit Diagnoses + + | Diagnosis | + + | Abnormal EKG - Primary Nonspecific abnormal electrocardiogram (ECG) (EKG) | + + | Other chest pain | + + documented in this encounter
--- OUTSIDE RECORDS SUMMARY | ~2020-05-11 | XMS | Encounter Summary ---
Demographics + + + | Address | [address] | | | [place] [address] | + + + | Home Phone | | + + + | Preferred Language | Unknown | + + + | Marital Status | | + + + | Evangelical Affiliation | Unknown | + + + | Race | Unknown | + + + | Ethnic Group | Unknown | + + + Author + + + | Author | [facility] | | | and [place] | + + + | Organization | [facility] | | | and [place] | + + + | Address | Unknown | + + + | Phone | Unavailable | + + + Support + + + + + | Name | Relationship | Address | Phone | + + + + + | Nayan Reynolds | ECON | [address] | | | | | [place] | | | | | [address] | | + + + + + Care Team Providers + +------+ + | Care Instruction Assistant Principal Name | Role | Phone | + [...] electrocardi | [address] | [address] | | | | | ogram (ECG) | [address] | [place], | | | | | (EKG) | [place], | [place] | | | | | Encounter | [place] [address] | [address] | | | | | for other | Phone: | Phone: | | | | | preprocedura | [phone] | [phone] | | | | | l | Fax: | Fax: | | | | | examination | [phone] | [phone] | | | | | Procedures | [...] | | | | | | STUDIES ND | | | | | | | CV STRS TST | | | | | | | XERS&/OR RX | | | | | | | CONT ECG W/O | | | | | | | I&R ND | | | | | | | [...] + + | 04/21/ | Hospital | [facility] | Brody Darling, | | | 2016 | Encounter | MED CTR NUCLEAR | MD [address] [place] | | | | | MEDICINE [address] | [address] [place], | | | | | [place], | [place] [address] | | | | | [place] [address] | [phone] | | | | | [phone] | | | +--------+ + + + [...]
--- OUTSIDE RECORDS SUMMARY | ~2020-05-11 | XMS | Encounter Summary ---
Demographics + + + | Address | [address] | | | [place] [address] | + + + | Home Phone | | + + + | Preferred Language | Unknown | + + + | Marital Status | | + + + | Jainism Affiliation | Unknown | + + + | Race | Unknown | + + + | Ethnic Group | Unknown | + + + Author + + + | Author | [facility] | | | and [place] | + + + | Organization | [facility] | | | and [place] | + + + | Address | Unknown | + + + | Phone | Unavailable | + + + Support + + + + + | Name | Relationship | Address | Phone | + + + + + | Nayan Reynolds | ECON | [address] | | | | | [place] | | | | | [address] | | + + + + + Care Team Providers + +------+ + | Care Cfa Name | Role | Phone | + [...] exam | MD Jerrica | [address] | | | | | Abnormal | [address] | [place], | | | | | EKG | [address] | [place] | | | | | Procedures | [place], | [address] | | | | | ECHO | [place] [address] | Phone: | | | | | [place] | Phone: | [phone] | | | | | ECHO HEART | [phone] | Fax: | | | | | [place] | Fax: | [phone] | | | | | [address] | [phone] | | | | | | [place] | | | | | | | [...] exam | MD Jerrica | [address] | | | | | Abnormal | [address] | [place], | | | | | EKG | [address] | [place] | | | | | Procedures | [place], | [address] | | | | | ECHO | [place] [address] | Phone: | | | | | [place] | Phone: | [phone] | | | | | ECHO HEART | [phone] | Fax: | | | | | [place] | Fax: | [phone] | | | | | [address] | [phone] | | | | | | [place] | | | | | | | [...] + + | 04/21/ | Hospital | [facility] | Jerrica Darling, | Pre-op exam; | | 2016 | Encounter | MED CTR ECHO [address] | MD [address] [place] | Abnormal EKG | | | | [address] [place] | [address], | | | | | [place] [address] | [place] [address] | | | | | [phone] | [phone] | | | | | | | [...] Demographics Patient Name STORMY FLOWERS | | [place] Room Number A Patient Number | [facility] | | [id number] Date of Study 04/21/2016 Visit Number | - IMAGING | | [id number] Referring | | | Physician PHONG BECERRIL Number Date of 1940 | | | Senior Database Engineer FRENCH LORETTA DUQUE | | | [place] | | | [place], | | | [place] Age 75 year(s) | | | Interpreting PHONG BECERRIL | | | Dental Laboratory Technology Teacher JERRICA DARLING MD | | | Gender [...] Report | | (TTE) Demographics Patient Name [facility] Room Number A Patient | | Number [id number] Date of Study 04/21/2016 Visit Number [id number] | | Referring Physician PHONG BECERRIL Number Date of | | 1940 Senior Database Engineer FRENCH DUQUE | | [place], | | [place] Age 75 year(s) Interpreting PHONG | | JERRICA Dental Laboratory Technology Teacher JERRICA DARLING MD Gender | | Female [...] ST. | [address] | [place], [place] | [phone] | | [facility] | | [address] | | | - IMAGING | | [...]
--- OUTSIDE RECORDS SUMMARY | ~2020-05-11 | XMS | Encounter Summary ---
Demographics + + + | Address | [address] | | | [place] [address] | + + + | Home Phone | | + + + | Preferred Language | Unknown | + + + | Marital Status | | + + + | Sabianist Affiliation | Unknown | + + + | Race | Unknown | + + + | Ethnic Group | Unknown | + + + Author + + + | Author | [facility] | | | and [place] | + + + | Organization | [facility] | | | and [place] | + + + | Address | Unknown | + + + | Phone | Unavailable | + + + Support + + + + + | Name | Relationship | Address | Phone | + + + + + | Nayan Reynolds | ECON | [address] | | | | | [place] | | | | | [address] | | + + + + + Care Team Providers + +------+ + | Care Air Bag Buffer Name | Role | Phone | + [...] | | | | [address] | [place], [place] | | | | | | Contrast | [address] | | | | | | | Phone: | | | | | | | [phone] | | | | | | | Fax: | | | | | | | [phone] | | +--------+--------+ + + + + [...] | | | | [address] | [place], [place] | | | | | | Contrast | [address] | | | | | | | Phone: | | | | | | | [phone] | | | | | | | Fax: | | | | | | | [phone] | | +--------+--------+ + + + + Encounter Details +--------+ + + + + | Date | Type | Department | Care Team | Description | +--------+ + + + + | 07/20/ | Hospital | [facility] | Mario Alberto Freitas, | Calculus of kidney | | 2016 | Encounter | MED CTR [address] | [address] | | | | | [place], | [address] | | | | | [place] [address] | [place], [place] | | | | | [phone] | [address] | | | | | | [phone] | | | | | | | [...]
--- OUTSIDE RECORDS SUMMARY | ~2020-05-11 | XMS | Encounter Summary ---
Demographics + + + | Address | [address] | | | [place] [address] | + + + | Home Phone | | + + + | Preferred Language | Unknown | + + + | Marital Status | | + + + | Episcopal Affiliation | Unknown | + + + | Race | Unknown | + + + | Ethnic Group | Unknown | + + + Author + + + | Author | [facility] | | | and [place] | + + + | Organization | [facility] | | | and [place] | + + + | Address | Unknown | + + + | Phone | Unavailable | + + + Support + + + + + | Name | Relationship | Address | Phone | + + + + + | Nayan Reynolds | ECON | [address] | | | | | [place] | | | | | [address] | | + + + + + Care Team Providers + +------+ + | Care Stemhole Borer Name | Role | Phone | + [...] + + | 05/10/ | Office | [facility] | Brody Darling, | Abnormal EKG | | 2016 | Visit | CARDIOLOGY [address] | [address] [place] | (Primary Dx); Other | | | | [place], | [place], | chest pain | | | | [place] [address] | [place] [address] | | | | | [phone] | [phone] | | | | | | | [...] RESULTS reviewed during visit today primarily from [facility]: LIPID No results found for: CHOL, TRIG, [...] She is in a class II of [place] Heart Association functional class. There is trace [...] needed. Electronically signed by: Brody Darling MD [facility] 05/10/2016 Portions of this chart may have been created with openPeople voice recognition software. Occasi onal wrong-word or [...]
[~2020-05-11 22:48] MED LIST changes: +VITAMIN B-125000 MC2 PO; +VITAMIN C500 M1 PO; +VITAMIN D3125 MC2 PO; +VITAMIN E400 UNI5 PO
--- NOTE | 2020-05-12 02:00 | NUR ---
PT TO ROOM 108 VIA STRETCHER. ORDERS RECEIVED. PT ALERT AND ORIENTED. TRANSFERRED WITH 4PA FROM [facility] TO BED. PT BRENDA WELL. RIGHT LEG SHORTENED AND ROTATED OUTWARDS. PT WITH BASELINE NEUROPATHY BLE. DAVENPORT PATENT DRAINING YELLOW URINE. IVF INFUSING. PT REPORTS PAIN AND NAUSEA ARE TOLERABLE AT THIS TIME. O2 2L/NC IN PLACE. ORIENTATION TO ROOM AND NURSE CALL LIGHT PROVIDED. WARM BLANKETS PROVIDED. WHITE BOARD UPDATED. PT DENIES QUESTIONS OR CONCERNS. CALL LIGHT IN REACH.
--- NOTE | 2020-05-12 07:00 | NUR ---
VS AND I&O COMPLETE. PRN ADMINISTERED FOR RIGHT LEG PAIN. PT REPOSITIONED IN BED WITH 2PA. FAMILY IN ROOM. ETHEL PATENT. IVF INFUSING. PT REMAINS NPO.
--- NOTE | 2020-05-12 08:15 | NUR ---
PATIENT IS IN BED RESTING, FAMILY IS IN THE ROOM FROM [place], THIS INFORMATION TECHNOLOGY INSTRUCTOR TOLD FAMILY TO CALL IF THE NEEDED ANYTHING, THE PATIENT IS CURRENTLY NPO
--- NOTE | 2020-05-12 08:44 | NUR ---
PT SITTING UPRIGHT IN BED TALKING TO FAMILY. BOTH SON AND DAUGHTER IN LAW ARE IN ROOM. PT DENIES HAVING MUCH PAIN, RATES 5/10 THOUGH. STATES IF SHE DOESNT MOVE IT IT IS OK. PULSES GOOD. VS STABLE.
--- NOTE | 2020-05-12 08:56 | NUR ---
SCD WAS PUT ON PATEINTS LEFT LEG
--- NOTE | 2020-05-12 10:34 | NUR ---
ANSWERED FAMILY AND PT QUESTIONS REGARDING SURGERY AND AFTER CARE. PT SEEMS AGREEABLE TO AFTERCARE AT [place].
--- NOTE | 2020-05-12 14:15 | NUR ---
CHECKING ON PT-DAWSON COUGHLIN AND OTHER STAFF IN WORKING WITH PT. WILL CHECK BACK
--- NOTE | 2020-05-12 14:23 | NUR ---
PT OFF FLOOR WITH ABILIO SNELL AND SON TERE. PT FAIRLY ANXIOUS AND WORRIED ABOUT WHAT THEY "GIVE TO YOU" IN SURGERY. DOESN'T WANT ANY EXTRA MEDICATIONS.
--- NOTE | 2020-05-12 16:17 | NUR ---
PT REMAINS OFF FLOOR FOR PROCEDURE
--- NOTE | 2020-05-12 17:46 | NUR ---
05/12/20 1746 Katy Chi 1709 PT ARRIVED IN PACU WIDE AWAKE AND SHIVERING. WARM BLANKETS AND ROMULO PAW PLACED ON PT. 1720 ICE PLACED ON R HIP PER DR ORDERS. BILAT RICHMOND ROBLEDO PUT ON. BP CUFF MOVED TO L CALF. 1730 OXYGEN MASK REMOVED. O2 AT 4L VIA NC PLACED WITH SATS 100%. 1744 TORADOL 15MG GIVEN IVP PER DR ORDERS.
--- NOTE | 2020-05-12 18:30 | NUR ---
PT RESTING WITH EYES CLOSED UPON ENTERING OPENED EYES. APPEARS DROWSY. STATES THAT SHE IS DOING OK, DENIES PAIN OR NAUSEA.
--- NOTE | 2020-05-12 18:46 | NUR ---
PT BACK TO FLOOR AT 1805 WITH ABILIO KRAMER. PT DROWSY BUT EASILY AROUSABLE. ABLE TO FEEL DOWN TO ANKLE. VS STABLE. HOOKED BACK TO IV FOR TRANS ACID. PULSE OX. SCD'S. ICE TO SITE. DRESSING CDI. GIVEN ICE WATER, IMMEDIETLY GOT NAUSOUS AFTER SMALL SIPS. GIVEN ZOFRAN. DAVENPORT LIGHT YELLOW. FAMILY IN ROOM. PLACED MORE WARM BLANKETS.
--- NOTE | 2020-05-12 19:45 | NUR ---
REPORT RECEIVED FROM DAY SHIFT RN. PT LYING IN BED, ALERT AND ORIENTED. DROWSY BUT AWAKENS EASILY. POST-OP VS DONE. IVF INFUSING. SCD'S/TEDS/ICE IN PLACE. DRESSING TO RIGHT HIP CDI. CMS INTACT. PT DENIES NEEDING PRN FOR PAIN. WARM BLANKET PROVIDED. SIPS OF WATER GIVEN. FAMILY IN ROOM. WHITE BOARD UPDATED. CALL LIGHT IN REACH.
--- NOTE | 2020-05-12 21:50 | NUR ---
EVENING ASSESSMENT COMPLETE. SCHEDULED MEDS ADMINISTERED PER EMAR. PT DENIES PAIN OR NAUSEA. MEDS ADMINISTERED WITH APPLE SAUCE. IV ABX INFUSING. REPOSITIONED IN BED. RIGHT HIP DRESSING CDI. FRESH ICE PLACED. CMS INTACT. PT REPORTS NUMBNESS FROM SURGERY HAS RESOLVED. SCD'S/RICHMOND'S/HP IN PLACE. DAVENPORT PATENT DRAINING YELLOW URINE WITH SEDIMENT NOTED. SON AT BEDSIDE. NO FURTHER NEEDS AT THIS TIME. CALL LIGHT IN REACH.
--- NOTE | 2020-05-13 01:04 | NUR ---
PT REPOSITONED IN BED PER REQUEST.
--- NOTE | 2020-05-13 02:13 | NUR ---
VS AND I&O COMPLETE. PT REPOSITIONED IN BED. SCD'S/TEDS IN PLACE. PT REFUSING TO WEAR HP AT THIS TIME. FRESH ICE TO RIGHT HIP. DRESSING CDI. CMS INTACT. PT DENIES PRN FOR PAIN. CPOX IN PLACE. SpO2 94% ON 2L/NC.
--- NOTE | 2020-05-13 04:09 | NUR ---
PT RESTING IN BED WITH EYES CLOSED, NAD. SpO2 96%. HR 77.
--- NOTE | 2020-05-13 06:00 | NUR ---
SCHEDULED MEDS ADMINISTERED PER EMAR. PT DENIES PAIN OR NAUSEA. DRESSING TO RIGHT HIP CDI. SCD'S/TEDS IN PLACE. ICE TO INCISION. CMS INTACT. PT DENIES FURTHER NEEDS. CALL LIGHT IN REACH.
--- NOTE | 2020-05-13 06:49 | EKG ---
[facility] [address] [facility] [place] [address] Signed Normal sinus rhythm Right bundle branch block Left anterior fascicular block Bifascicular block Abnormal ECG No previous ECGs available Confirmed by MARILYN TOURE MD ([id number]) on 05/13/2020 6:48:57 AM Electronically Signed By: MARILYN TOURE MD 05/13/20 0649 PATIENT NAME: LANE BURROWS Electrocardiogram DATE OF : 40 PHYSICIAN: MARILYN TOURE MD REPORT #: [id number] REPORT IS CONFIDENTIAL AND NOT TO BE RELEASED WITHOUT AUTHORIZATION
--- NOTE | 2020-05-13 07:06 | OR ---
[facility] [address], [place] [address] Signed DATE OF OPERATION: 05/12/2020 SURGEON: Poly Lerner MD PREOPERATIVE DIAGNOSIS: Displaced right intertrochanteric hip fracture. POSTOPERATIVE DIAGNOSIS: Displaced right intertrochanteric hip fracture. PROCEDURE PERFORMED: Open reduction and internal fixation of right hip. CLEANER CARPET AND UPHOLSTERY: Cory LAIRD. ANESTHESIA: Spinal. ESTIMATED BLOOD LOSS: 150 mL. IMPLANTS: 12 x 130 Synthes TFN, 105 mm lag screw, and 36 mm distal locking screw. BRIEF HISTORY: Lane is a 79-year-old female, who suffered a ground level fall last night. She fractured hip, was transported to the emergency department, where radiographs revealed the intertrochanteric hip fracture. She was admitted to the hospital overnight for pain control with the plan to bring her to the operating room today. Risks, benefits, and alternatives of surgery were discussed with her and her son, and they elected to proceed. DESCRIPTION OF PROCEDURE: Once consent was obtained, she was taken to the operating room. After adequate anesthesia, she was placed on the fracture table. The left leg was flexed, abducted, and externally rotated on a well-padded leg thornton. The leg was placed in a foot traction and Leadbetter maneuver was performed. The fracture was reasonably well reduced with just a little offset at the calcar. The 2 incisions with the TFN were then taken through skin and subcutaneous tissue. The greater trochanter was approached first Electronically Signed By: POLY LERNER MD 05/13/20 0706 PATIENT NAME: LANE BURROWS OPERATIVE REPORT DATE OF : 40 REPORT #: [id number] PHYSICIAN: POLY LERNER MD PCP: EDDIE TO MD REPORT IS CONFIDENTIAL AND NOT TO BE RELEASED WITHOUT AUTHORIZATION [facility] [address], [place] [address] Signed and a clamp was placed around the greater trochanter due to a sagittal split. Once this was accomplished, the guidepin was advanced from the tip of the trochanter into the body of the femur. This was then over-reamed using the large acorn reamer. Once this was accomplished, the guidepin was exchanged for guide estrella and this was extended down the femur. This was then over-reamed up to 13 mm. This would accept a 12 mm estrella. In the meantime, we placed a bone hook around the calcar from the lower incision and reduced the calcar back to its natural position. Once this was accomplished, the TFN was placed over the guide estrella and advanced until it was well-seated. The calcar was held reduced during this portion of procedure. We then placed the guide for the lag screw and put a guidepin through this up into the center-center position of the femoral head. Once this was accomplished, we released the calcar and removed the clamp from the greater trochanter. The guidepin for the lag screw was measured to 105, was overdrilled with same depth. Once this was accomplished, we then placed 105 over the guidepin and advanced until it was well-seated. The top locking bolt was then brought down from the center of the estrella onto the locking bolt. Correction on the lag screw. The guidepin and insertion assembly were removed and the guide for the distal locking screw was placed. This was then drilled and a 36 mm screw was placed. Once this was accomplished, the insertion guide was removed. Final radiographs showed good reduction, good placement of the estrella and the lag screw. Wounds were copiously irrigated with antibiotic solution, closed with #1 Stratafix, followed by 2-0 Stratafix in the subcutaneous tissue and krista for the skin. The wound was dressed with an Aquacel dressing. She was awakened and taken to the recovery room in satisfactory condition. All sponge, needle, and instrument counts were correct. Poly Lerner MD BA/MODL /[id number] Copies: ~ Electronically Signed By: POLY LERNER MD 05/13/20 0706 PATIENT NAME: LANE BURROWS OPERATIVE REPORT DATE OF : 40 REPORT #: [id number] PHYSICIAN: POLY LERNER MD PCP: EDDIE TO MD REPORT IS CONFIDENTIAL AND NOT TO BE RELEASED WITHOUT AUTHORIZATION
--- NOTE | 2020-05-13 07:44 | NUR ---
Tonica 7.5/325mg po admin for reports of 8/10 right hip pain.
--- NOTE | 2020-05-13 07:45 | NUR ---
PATIENT SITTING UP IN BED. SON IN ROOM. WITHE BOARD UPDATED. CALL LIGHT WITHIN REACH. NO OTHER NEEDS AT THIS TIME
--- NOTE | 2020-05-13 07:52 | NUR ---
Pt assisted to bedside commode then to chair; two person heavy assist with walker and gait belt. Right hip dressing is CDI, cap refill less than three seconds, cms intact. Pt has intermittent nausea, recently given zofran for this. Family member at bedside. Pt has no needs at this time. Call light within reach.
--- NOTE | 2020-05-13 08:55 | NUR ---
Spoke with pt and son. Pt orginially stating she will go home, after discussion pt agrees to go to [facility]. Informed by son he spoke with them yesterday. Chart faxed to [facility] and called, they will let me know tomorrow if they have rooms.
--- NOTE | 2020-05-13 09:21 | NUR ---
Brower catheter removed per doc order. Catheter tip intact upon removal, patient tolerated well. Call light within reach. Underwear and pad placed at this time per pt request.
--- NOTE | 2020-05-13 09:28 | NUR ---
PATIENT SITTING UP IN CHAIR. RN AND SON IN ROOM. VITAL SIGNS AND I&O DONE. CALL LIGHT WITHIN REACH. NO OTHER NEEDS AT THIS TIME
--- NOTE | 2020-05-13 13:16 | NUR ---
CALL LIGHT ANSWERED. PATIENT SITTING UP IN CHAIR. SON AND RN IN ROOM. PATIENT USES THE BASE COMMODE. TWO PERSON ASSISTING WITH WALKER AND GAIT BELT. PATIENT BACKS TO BED. VITAL SIGNS AND I&O DONE. WARM BLANKET PROVIDED. PATIENT DID NOT VOID DURING THIS PERIOD. RN NOTIFIED. CALL LIGHT WITHIN REACH. NO OTHER NEEDS AT THIS TIME
--- NOTE | 2020-05-13 13:21 | NUR ---
Phenergan 6.25mg IVP administered via pump for reports of nausea.
--- NOTE | 2020-05-13 15:22 | NUR ---
CALLED DR RO REGARDING PAIN AND U\O. HE ORDERED A 500ML BOLUS AND CHANGED THE PAIN MEDS TO OXY 5.
--- NOTE | 2020-05-13 15:54 | NUR ---
Oxycodone 5mg po for reports to right hip pain, 03/19.
--- NOTE | 2020-05-13 16:47 | NUR ---
CALL LIGHT ANSWERED. PATIENT RESTING IN BED. PHYSICAL THERAPIST AND FAMILY IN ROOM. PATIENT USES THE BASE COMMODE. THREE PERSON ASSISTING. PATIENT BACKS TO BED. THREE PERSON ASSISTING WITH ZAKI. CALL LIGHT WITHIN REACH. NO OTHER NEEDS AT THIS TIME
--- NOTE | 2020-05-13 17:57 | NUR ---
Pt in bed eating dinner at this time. Recently voided 250ml clear yellow urine. Pt reports pain has improved. Right hip dressing remains CDI. SCD's intact.
--- NOTE | 2020-05-13 18:09 | NUR ---
PATIENT SITTING UP IN BED. FAMILY IN ROOM. VITAL SIGNS AND I&O DONE CALL LIGHT WITHIN REACH. NO OTHER NEEDS AT THIS TIME
--- NOTE | 2020-05-13 19:33 | NUR ---
REPORT RECEIVED FROM DAY SHIFT RN. PT LYING IN BED, ALERT AND ORIENTED. SCDS/TEDS IN PLACE. DRESSING TO RIGHT HIP CDI. PT DENIES PRN FOR PAIN. NO NEEDS AT THIS TIME. WHITE BOARD UPDATED. CALL LIGHT IN REACH.
--- NOTE | 2020-05-13 22:00 | NUR ---
EVENING ASSESSMENT COMPLETE. SCHEDULED MEDS ADMINISTERED PER EMAR WITH APPLESAUCE. PT DENIES PAIN AND NAUSEA. RIGHT HIP DRESSING WITH SMALL AMOUNT OF OLD DRAINAGE. CMS INTACT. SCD'S/TEDS IN PLACE. PT REFUSES HEEL PROTECTORS. REPOSITIONED IN BED. SON IN ROOM. CALL LIGHT IN REACH.
--- NOTE | 2020-05-13 22:34 | NUR ---
ASSISTED CNC OPERATOR MACHINIST CECE CLEANED PATIENT. ALONZO CARE DONE. PATIENT VOIDED.
--- NOTE | 2020-05-14 00:14 | NUR ---
SCHEDULED MEDS ADMINISTERED. PT RESTING IN BED WITH EYES CLOSED, NAD.
--- NOTE | 2020-05-14 01:44 | NUR ---
CALL LIGHT ANSWERED. PT VOIDED IN BEDPAN. NO FURTHER NEEDS AT THIS TIME.
--- NOTE | 2020-05-14 03:45 | NUR ---
PT RESTING IN BED WITH EYES CLOSED. RR EVEN AND UNLABORED. SON IN RECLINER SLEEPING.
--- NOTE | 2020-05-14 06:50 | NUR ---
SCHEDULED MEDS ADMINISTERED PER EMAR. VS AND I&O COMPLETE. SpO2 ON RA LOW 70'S. PT WITH SHALLOW RESPIRATIONS. LUNGS CLEAR. ASYMPTOMATIC. SON REPORTS PT PRIMARY DOCTOR HAS BEEN WANTING PT TO WEAR HOME OXYGEN. PT PLACED ON 3L/NC AND CPOX AT THIS TIME. SpO2 91%. ENCOURAGED PT TO COUGH AND DEEP BREATHE. RIGHT HIP DRESSING INTACT WITH SMALL AMOUNT SEROSANG DRAINAGE. CMS INTACT. SCDS/TEDS IN PLACE. ENSURE PROVIDED. NO FURTHER NEEDS. CALL LIGHT IN REACH.
--- NOTE | 2020-05-14 07:38 | NUR ---
Pt sitting up in bed watching TV at this time, A&OX4. Pt reports pain is tolerable. Right hip dressing is CDI, cms intact. SCD's in place. Pt denies needs. Personal supplies and call light within reach.
--- NOTE | 2020-05-14 07:50 | NUR ---
PATIENT SITTING UP IN BED. SON IN ROOM. WHITE BOARD UPDATED. SETS UP TABLE FOR BREAKFAST. CALL LIGHT WITHIN REACH. NO OTHER NEEDS AT THIS TIME
--- NOTE | 2020-05-14 08:10 | NUR ---
Spoke with Neisha and her son. He is very concerned about pt admission to SNF where he is unable to see and is concerned about her care. He does want her to go to [facility]. Neisha is stating she does not want to leave [place]. We again discussed SNFs in the area and I can request placement to anywhere she would like to go. She does not want to go to [facility], and does agree she needs to go to a SNF for rehab. She is discouraged as she was unable to walk with the walker yesterday and required a fidel. Discussed this is why she needs a rehab program. Informed I will call to confirm acceptance from [facility].
--- NOTE | 2020-05-14 08:55 | NUR ---
OXYCODONE 5MG PO GIVEN FOR REPORTS OF 6/10 RIGHT HIP PAIN.
--- NOTE | 2020-05-14 09:07 | NUR ---
PATIENT RESTING IN BED. SON AND RN IN ROOM. VITAL SIGNS AND I&O DONE. CALL LIGHT WITHIN REACH. NO OTHER NEEDS AT THIS TIME
--- NOTE | 2020-05-14 09:20 | NUR ---
ROXI FROM BETHANY REYES TO ADJUST FREQUENCY OF OXYCODONE Q6HR TO NOW BE Q4 HR PRN. DOSE TO REMAIN 5MG.
--- NOTE | 2020-05-14 09:30 | NUR ---
Call from Mary Gillis. She saw pt this am. She has consulted with Dr. Ellis. Pt has UTI, remains on , and may require a transfusion. They feel pt will not dc until Tuesday. Called and left message for [facility].
--- NOTE | 2020-05-14 11:20 | NUR ---
Unit of PRBC's started at this time. Pt given education regarding signs and symptoms to monitor for. Pt currently denies sob and or chest pain, vital signs are stable. Pt verbalized that she will alert staff if she has an onset of distress. Pt has no needs. This RN stayed with patient for the first fifteen minutes. Call light within reach.
--- NOTE | 2020-05-14 12:36 | NUR ---
Pt in bed, reports doing well. Blood continuing to infuse at this time. Oxygen saturations is 92% on 4L. Pt denies needs at this time.
--- NOTE | 2020-05-14 13:25 | NUR ---
PATIENT SITTING UP IN BED. FAMILY IN ROOM. VITAL SIGNS AND I&O DONE. CALL LIGHT WITHIN REACH. NO OTHER NEEDS AT THIS TIME
--- NOTE | 2020-05-14 14:16 | NUR ---
Received message from [facility]. They plan on pt for Tuesday. Pt will need a second Covid test as [facility] requires - covid test with in 7 days of admission. Test ordered. Attempted to return call and update [facility] but voice mail x 3 over the last few hours and mailbox is full.
--- NOTE | 2020-05-14 14:23 | NUR ---
COVID swab completed with RT.
--- NOTE | 2020-05-14 14:40 | NUR ---
Notified by staff, pt's son would like to speak. To nurses station son is upset, wanting to know why pt will not dc as planned today or tomorrow and plan now is to dc on Tuesday. Updated I received a call from Elena and Dr Ellis and they had consulted and did not feel pt was ready for dc. Again reviewed with son, we cannot give exact times as discharge will depend on how Neisha is doing. Elena had discussed with him this am possible blood transfusion, antibiotics, and pt remains on 3l when she rounded. He denies knowing any of this information. I appologized and told him I thought he was aware. His then reminded him, Neisha had started antibiotics prior to the surgery. I infomred them they is a possibility pt could discharge on Tuesday, but it will depend on how she is doind and what Dr. Lerner decides. It will also depend if [facility] has a room open and if we can set up transportation. I reminded them, transporation is out of pocket to [facility]. He states his mom has firemed, informed this does not cover transport to a Snf in .
--- NOTE | 2020-05-14 15:43 | NUR ---
Call from [facility]. He will save a bed for [facility] for Tuesday. There is a possibility she could admit on Tuesday if she is discharged, I will need to call him Tuesday. He again states they require a covid test within 7 days and informed it has been ordered for today.
--- NOTE | 2020-05-14 15:45 | NUR ---
In to assist with patient using restroom. x1 unmeasured void, clear yellow urine. Pt denies needs at this time and reports right hip pain is well tolerated. No further needs. Call light within reach.
--- NOTE | 2020-05-14 16:00 | NUR ---
Notified by Dr Ellis she has had a lengthy discussion phone with son, wanting to know why his mother is not discharging. During our conversation Chip Machine Operator arrives and states Elena called and son has also called her seeking the same information. Discussed at this point, we will refer him to Dr. Lerner for any questions as he continues to deny knowledge which has been explained to him many times by several people.
--- NOTE | 2020-05-14 16:21 | NUR ---
CALL FROM ANA RENTERIA THAT SON OF PATIENT HAD CALLED HER WITH QUESTIONS ABOUT PATIENT TESTING/PLACEMENT. SON AND DAUGHTER ABLE TO BE BACK IN ROOM AT 1607.
--- NOTE | 2020-05-14 17:24 | NUR ---
PATIENT SITTING UP IN BED. SON IN ROOM. VITAL SIGNS AND I&O DONE. CALL LIGHT WITHIN REACH. NO OTHER NEEDS AT THIS TIME
--- NOTE | 2020-05-14 19:00 | NUR ---
REPORT AT BEDSIDE. PT AWAKE AND PARTICIAPTING. 4l NC. SCD PLACED AND FUNCTIONING. PAIN CONTROLED RATING 3-4/10. CALL LIGHT IN REACH AND SON AT BEDSIDE
--- NOTE | 2020-05-14 21:15 | NUR ---
PT USES CALL LIGHT APPROPRIATLY. REQUEST BED ROBISON. PT ROLLS EASILY AND WITH MINIMAL PAIN. PT TRYING TO HAVE BM, BUT ONLY SMEAR AND URINE. PT THINKS IT WOULD BE EASIER WHEN ABLE TO STAND AND USE BEDSIDE COMODE. SCD'S IN PLACE AND FUNCTIONING. CALL LUGHT IN REACH
--- NOTE | 2020-05-15 00:08 | NUR ---
PT RESTING IN BED WITH EYES CLOSED. PT RATES PAIN 5/5 AND DESCRIBES "JUST UNCOMFORTABLE". TORODOL ADMINISTERED. IV FLUSH 10ML NS. SCD'S PLACED AND FUNCTONING. CALL LIGHT IN REACH. NO REQUEST AT THIS TIME
--- NOTE | 2020-05-15 04:16 | NUR ---
PT USES CALL LIGHT APPROPRIATLY. PT. REQUEST BED ROBISON. PT HAVING DIFFICULTY WITH FINDING THE RIGHT MOVEMENT ON THE BED ROBISON. CHANGED PAD UNDER PT. CALL LIGHT IN REACH. NO REQUESTS AT THIS TIME
--- NOTE | 2020-05-15 05:01 | NUR ---
pt used call light. STATES SHE IS UNCOMFRTBAL AND NEEDS TO BE RE-POISTIONED. WE SCOOTED UP IN BED AND REPOSITONED. HOWEVER PT REPORTS PAIN 8/10. i SUGGESTED SHE TAKE AND OXY TO HELP RELIVE HER PAIN, SHE REPLIED" I DONT WANT TO GET ADDICITED" i EXPLAINED TO HER THAT TAKING THE MEDICATION DIRECTED BY YOUR DOCTOR WILL HAVE A LOW RISK OF ADDICTION. SHE AGREED TO TAKE THE MEDICATION. SON DOUG AT BEDSIDE, DISCUSSING WITH HER THAT SHE WAITED TOO LONG TO TAKE IT AND HE WILL HELP REMIND HER
--- NOTE | 2020-05-15 05:05 | NUR ---
PT IS A PLEASNT LADY WITH FEARS OF BECOMING ADDICTED TO [employer]. IT WILL TAKE SOME CONVINCING TO GET HER TO TAKE THE OXY. SHE HAD HER FIRST REAL BOUGHT OF PAIN 05/19 AT 0500. SHE USES THE BED ROBISON FOR BOWLE AND BLADDER. SHE WISHES THAT PT WILL HELP HER GET UP TO THE BED SIDE COMODE TODAY. SON DOUG AT BEDSIDE, VERY HELPFUL AND ATTENTVIE. PT IS ON 4L NC AND SATING HIGH 90'S. HER SCD ARE IN PLACE. SHE IS ON A REGULAR DIET.
--- NOTE | 2020-05-15 06:23 | NUR ---
AFTER ADMINISTRATION OF OXY AT 0430 PT IS GETTIGN PAIN RELIFE. MEDICATED WITH SCHEDULED TYLENOL AND TORADOL. PT TAKE ALL MEDS IN APPLESAUSE. LARGE PILLS NEED TO BE CUT IN HALF FOR EASIER SWALLOWING
--- NOTE | 2020-05-15 06:50 | NUR ---
NOTED 96/50. PT ASYMPTOMATIC, NO DIZZINESS, AOX3.
--- NOTE | 2020-05-15 08:05 | NUR ---
MORNING ASSESSMENT DONE. PATIENT RATES RIGHT HIP PAIN 5/10 BUT SAYS, "IT'S NOT BOTHERING ME, MY PAIN IS FINE." PATIENT ENDORSES POOR APPETITE, LIGHT BREAKFAST ORDERED. SON IS IN ROOM. DR. TOURE IN TO EVALUATE PATIENT. DR. RO HAS BEEN IN TO SEE PATIENT THIS MORNING. PATIENT ENCOURAGED TO USE INCENTIVE SPIROMETER BY DR. TOURE.
--- NOTE | 2020-05-15 09:58 | NUR ---
PATIENT UP TO COMMODE WITH 2 PERSON ASSIST, GAIT BELT AND FWW. PATIENT IS UNABLE TO MOVE WITH TOE TOUCH AND WEIGHT BEARS ON RIGHT LEG. PATIENT HAD LARGE BM, VOIDED. PATIENT UP TO CHAIR TO WORK WITH PHYSICAL THERAPY. 5MG OF PO OXYCODONE GIVEN FOR 5/10 PAIN. LINENS CHANGED.
--- NOTE | 2020-05-15 11:14 | NUR ---
WAS ABLE TO VISIT WITH PT TODAY. SHE IS SITTING IN CHAIR-SHE SAID STAFF WANTED HER TO SIT IN CHAIR FOR AWHILE. PT COMPLAINED THAT R LEG WAS NOT WORKING SHE THINKS IT SHOULD. STAIRS ARE A CHALLENGE. PT HAS TROUBLE SLEEPING, HAS TV ON ALWAYS. GAVE ENCOURAGEMENT AND BLESSING. LEFT COPY OF G.POST. WILL FOLLOW
--- NOTE | 2020-05-15 14:32 | NUR ---
PATIENT GIVEN SCHEDULED TYLENOL, SITTING UP TO CHAIR AND AWAITING PHYSICAL THERAPY.
--- NOTE | 2020-05-15 15:10 | NUR ---
PATIENT WORKED WITH PT, UP TO COMMODE TO VOID/BM, 2-3 PERSON ASSIST DUE TO ACTIVITY. PATIENT TITRATED TO 2L VIA NC AND HOLDING AT 96%. RT AND DR. TORUE NOTIFIED.
--- NOTE | 2020-05-15 17:47 | NUR ---
PATIENT SITTING UP IN CHAIR WITH DINNER AT BEDSIDE.
--- NOTE | 2020-05-15 18:19 | NUR ---
PATIENT IS ON ROOM AIR, O2 SATS ARE 95-96%, PATIENT IS USING THE INCENTIVE SPIROMETER WELL, RT IN ROOM TO CHECK PATIENT ON ROOM AIR.
--- NOTE | 2020-05-15 19:30 | NUR ---
LAWANDA BLANCO RECEIVED FROM ESTELA WARD AT BEDSIDE. PT AWAKE AND RESTING IN CHAIR, FAMILY ALSO IN ROOM. PT VERBALIZING NAUSEA, PRN ZOFRAN GIVEN (SEE EMAR). DRESSING TO RIGHT HIP INTACT, SOME DARK SHADOWING NOTED, WILL MONITOR SITE FOR CHANGES IN SHADOWING. BOARD UPDATED, CALL LIGHT INR EACH. PT PLACED ON 1LNC BY ESTELA RN FOR O2 SATS IN MID 80'S, QUICKLY RESOLVED TO MID 90'S.
--- NOTE | 2020-05-15 21:10 | NUR ---
ASSESSMENT COMPLETE, SCHEDULED MEDS GIVEN (SEE EMAR). PT REPORTS PAIN IS TOLERABLE AT 5/10 AND WISHES TO WAIT UNTIL SCHEDULED TYLENOL. DRESSING TO RIGHT HIP REMAINS UNCHANGED, NO NEW SHADOWING NOTED. DRESSING INTACT. PT VERBALIZES NEED TO VOID. DISCUSSED OPTIONS TO PT OF WITHER USING ZAKI OR 2PA, PT WISHES TO STAND. PT UP 2PA WITH FWW AND GAIT BELT. FREQUENT AFFIRMATION AND DIRECTION UTILIZED, BUT PT DID WELL OVERALL. TOE TOUCH TO RLE. PT IN BED WITH BILATERAL SCD'S AND [place] HOSE IN PLACE. BILATERAL PEDAL PULSES NOTED. NO FURTHER NEEDS, CALL LIGHT IN REACH. FAMILY IN ROOM. ROOM TIDIED.
--- NOTE | 2020-05-15 22:20 | NUR ---
SCHEDULED TYLENOL AND PRN OXYCODONE GIVEN FOR 5/10 PAIN (SEE EMAR). WARM BLANKET AND ICE PACK FOR RIGHT HIP ALSO PROVIDED. NO FURTHER NEEDS, CALL LIGHT IN REACH. FAMILY IN ROOM.
--- NOTE | 2020-05-15 22:40 | NUR ---
WITH THE HELP OF WALLY DUEÑAS WE HELPED PT ON AND OFF THE BEDPAN. TWO WARM BLANKETS GIVEN. BEDSIDE TABLE AND CALL LIGHT IN REACH.
--- NOTE | 2020-05-16 00:30 | NUR ---
SCHEDULED TORADOL GIVEN FOR 5/10 PAIN. IV SITE WNL. PT DENIES FURTHER NEEDS, CPOX IN PLACE. O2 SAT 96-97% 1LNC, HR LOW 80'S. CALL LIGHT IN REACH.
--- NOTE | 2020-05-16 02:03 | NUR ---
pt USED CALL LIGHT TO ASK FOR ASSISTANCE VOIDING. REQUESTED BEDPAN BECAUSE pt STATES "IT IS TOO CUMBERSOME TO GET OUT OF BED ONTO BSC TO PEE" pt ENCOURAGED TO USE BSC, BUT HER OPINON REMAINED UNCHANGED. WALLY MCKEON AND MYSELF ASSISTED pt.
--- NOTE | 2020-05-16 02:20 | NUR ---
ASSESSMENT COMPLETE, PT AWAKE AND RESTING IN BED. O2 SAT 98%, NC TITRATED TO 0.5LNC. WILL MONITOR. DRESSING TO RIGHT HIP REMAINS INTACT, SCANT INCREASE TO SHADOWING, WILL MONITOR. PT DENIES NEED FOR PAIN MEDICATION. NO FURTHER NEEDS, CALL LIGHT IN REACH.
--- NOTE | 2020-05-16 04:23 | NUR ---
PT RESTING QUIETLY IN BED WITH EYES CLOSED. RR EVEN AND UNLABORED, NO DISTRESS NOTED. CALL LIGHT IN REACH.
--- NOTE | 2020-05-16 06:52 | NUR ---
SCHEDULED TORADOL AND TYLENOL GIVEN FOR 5/10 PAIN ALONG WITH PRN OXYCODONE. IV SITE WNL, SON ALSO IN ROOM. PT VERBALIZES NEED TO VOID, DOES NOT WANT TO STAND UP TO VOID. WALLY DUEÑAS AND WALLY MCKEON IN ROOM TO ASSESS PT. CALL LIGHT IN REACH.
--- NOTE | 2020-05-16 07:10 | NUR ---
WITH THE HELP OF WALLY DUEÑAS WE HELPED PT TO THE BSC AND BACK TO BED WITH HER GAIT BELT. SCD'S TURNED BACK ON. FRESH ICE WATER GIVEN. BEDSIDE TABLE AND CALL LIGHT IN REACH. SON IN ROOM WELL WHEN WE WERE TRANSFERING HER. PT OR HER SON NEED NOTHING MORE AT THIS TIME.
--- NOTE | 2020-05-16 07:20 | NUR ---
informed by tino giraldo pt's dressing was leaking blood when she stood to void. pt in bed resting, no active leaking noted at this time. dressing almost fully saturated, dayshihao lance also at bedside. will monitor. cecil lance to reinforce site.
--- NOTE | 2020-05-16 09:00 | NUR ---
BETTER APPETITE THIS MORNING, TAKING FLUIDS WELL, SON AT BEDSIDE VERY ATTENTIVE, PT WAS PREMEDICATED FOR THERAPY THIS AM, PHYSICAL THERAPY TO ROOM AT THIS TIME FOR EXERCISES AND WILL GET PT UP. VERONICA Bhardwaj HIP REINFORCED, PT ON ROOM AIR AT THIS TIME TO EVAL WHILE WORKING WITH PT.
--- NOTE | 2020-05-16 09:42 | NUR ---
SPOKE WITH DR RO ON PHONE. HE WANTS PT TO BE ENCOURAGED TO GET UP TO BSC OR TOILET INSTEAD OF BEDPAN, ESPECIALLY AT NIGHT.
--- NOTE | 2020-05-16 10:20 | NUR ---
TWO PERSON ASSIST TO STAND USING FWW AND PIVOT TO CHAIR, NEEDS CONSTANT CUES AND ENCOURAGEMENT. ABLE TO BEAR FULL WT. WITH PRECAUTIONS TO CHAIR. NAUSEA AFTER ACTIVITY, EMESIS OF 300ML, ZOFRAN SL GIVEN WITH GOOD RELIEF. SITTING UP IN CHAIR, ENCOURAGED TO USE IS, 90-94% ON ROOM AIR, WILL CONT TO MONITOR,.CALL LIGHT IN EASY REACH. SON IN ROOM. STATES SHE FEELS BETTER AND IS COMFORTABLE.
--- NOTE | 2020-05-16 10:40 | NUR ---
Spoke with Neisha. Son in room. He is requesting name of Physcian over [facility]. Notified it is Dr. Ethan Trejo. Discussed pt more than likely will dc on Tuesday to [facility] as Dr Lerner is in surgery and has not seen Neisha today. Pt denies needs. States she has been nauseated and vomited.
--- NOTE | 2020-05-16 11:17 | NUR ---
Awaiting second covid test, no results as of yet. Pt cannot admit to [facility] without this completed test.
--- NOTE | 2020-05-16 13:07 | NUR ---
DR RO IN TO SEE PT. TORADOL DC. OK TO CHANGE VERONICA TO R HIP, PHYSICAL THERAPY COMING IN TO WORK WITH PT AGAIN AND ASSIST TO BED, PREMEDICATED FOR PAIN CONTROL.
--- NOTE | 2020-05-16 16:09 | NUR ---
PT GIVEN BED BATH AND SHAMPOO CAP, IN MUCH BETTER SPIRITS THIS AFTERNOON. SON HAS GONE HOME BUT DAUGHTER IN LAW IN ROOM. STATES SHE IS COMFORTABLE AND HAS HAD NO MORE NAUSEA.
--- NOTE | 2020-05-16 18:24 | NUR ---
PT IS TRANSFERING ONTO BSC WITH 2 PERSON ASSIST USING WALKER, PT IS STRONGER AND MOTIVATION TO ASSIST SELF IS BETTER THIS AFTERNOON. REPORTS LITTLE TO NO PAIN AT REST. DENIES NAUSEA AFTER DINNER. FAMILY IN ROOM VISITING.
--- NOTE | 2020-05-16 19:00 | NUR ---
SHIFT REPORT RECEIVED FROM DAYSWYFT ABILIO TURCIOS AT BEDSIDE. PT AWAKE AND RESTING IN BED, REPORTS FEELING TIRED OF PHYSICAL ACTIVITY ON . DRESSING INTACT TO RIGHT HIP, SITE WNL. WILL MONITOR. FAMILY ALSO IN ROOM. PT DENIES NEEDS OR CONCERNS AT THIS TIME. CALL LIGHT IN REACH.
--- NOTE | 2020-05-16 21:30 | NUR ---
APPROX THIS TIME, RT INFORMED THIS RN THAT PT'S WAS SPOT CHECKED AND O2 SAT WAS IN THE 70'S ON RA. PER RT PT WAS THEN PLACED ON 3LNC BRIEFLY AND QUICKLY RESOLVED TO UPPER 90'S. PT IS NOW SUSTAINING O2 SATS IN THE 90'S ON 1LNC.
--- NOTE | 2020-05-16 22:09 | NUR ---
ASSESSMENT COMPLETE, SCHEDULED MEDS GIVEN ALONG WITH PRN OXYCODONE. VSS, PT UP 2PA WITH GAIT BELT AND FWW TO [facility] TO VOID. PT TOLERATED WELL. PER SHIFT REPORT IV SITE LEAKING, SITE DISCONTINUED BY THIS RN, REINFORCED WITH 2X2 AND COBAN. PT DENIES NAUSEA. NO CHANGE TO RIGHT HIP DRESSING. PT WILL CALL WHEN READY TO AMBULATE BACK TO BED. CALL LIGHT IN REACH.
--- NOTE | 2020-05-16 22:50 | NUR ---
WITH THE HELP OF ABILIO GREGORY WE HELPED PT BACK TO BED FROM THE BSC. REPOSITIONED HER IN BED. BEDSIDE TABLE AND CALL LIGHT IN REACH.
--- NOTE | 2020-05-17 01:35 | NUR ---
PT UP 2PA WITH FWW TO VOID, TOLERATED WELL. PT BACK IN BED. ASSESSMENT COMPLETE, NO NEW CAHNGES OR CONCERNS. PT REPORTS TOLERABLE 5/10 PAIN. DENIES NEEDS FOR PAIN MEDICATION AT THIS TIME, SCANT SEROSANGUINEOUS SHADOWING NOTED. DRESSING INTACT. NO FURTHER NEEDS, CALL LIGHT IN REACH.
--- NOTE | 2020-05-17 03:12 | NUR ---
PT RESTING IN BED WITH EYES CLOSED, RR EVEN AND UNLABORED. O2 SAT 93 ON 1LNC, HR 84. NO DISTRESS NOTED. CALL LIGHT IN REACH.
--- NOTE | 2020-05-17 04:32 | NUR ---
pt up 2pa with fww to bsc to void, pt tolerated well. pt back in bed, voided x1. vs and i&o's complete. no further needs, scd's and bimal hose in place. son in room. call light in reach.
--- NOTE | 2020-05-17 04:42 | NUR ---
WITH THE HELP OF ABILIO QUIROGA WE HELPED PT TO THE BSC AND BACK TO BED WITH HER FWW. VITALS AND I&OS DONE AND CHARTED. FRESH WATER GIVEN. PT NEEDS NOTHING MORE AT THIS TIME.
--- NOTE | 2020-05-17 06:27 | NUR ---
WITH THE HELP OF ABILIO GREGORY WE HELPED PT TO THE BSC AND BACK TO BED WITH HER FWW. BEDSIDE TABLE AND CALL LIGHT IN REACH. GARBAGES EMPTIED. PT NEEDS NOTHING MORE AT THIS TIME.
--- NOTE | 2020-05-17 06:59 | NUR ---
scheduled tylenol and toradol along with prn oxycodone given for 6/10 pain (see emar). son in room, denies further needs. call light in reach.
--- NOTE | 2020-05-17 07:50 | NUR ---
PATIENT RESTING IN BED. SON IN ROOM. PATIENT INCONTINENT OF URINE. PERICARE PERFORMED. PATIENT ASSISTED TO TRANSFER TO THE CHAIR. TWO PERSON ASSISTING. LINENS CHANGED. WARM BLANKET PROVIDED. CALL LIGHT WITHIN REACH. NO OTHER NEEDS AT THIS TIME
--- NOTE | 2020-05-17 07:53 | NUR ---
PT STATES SHE IS WET, 2 PERSON ASSIST TO TRANSFER UP TO BS, GOOD SKIN CARE GIVEN AND ASSISTED INTO CHAIR FOR BREAKFAST. PT IS MUCH STRONGER TODAY AND DOING WELL WITH PRECATIONS, STATES NO PAIN AT REST, DENIES NAUSEA, BREAKFAST JUST BROUGHT IN. SON IN ROOM. CALL LIGHT IN EASY REACH.
--- NOTE | 2020-05-17 08:55 | PATH ---
[facility] [address] [facility] [address] [place], [place] [address] Signed THIS IS AN AMENDED REPORT ORDERING PHYSICIAN: Tariq Lerner MD PATIENT NAME: LANE BURROWS GENDER: F : 1940 SPECIMEN(S): MOLECULAR PATHOLOGY RESULTS: SARS-CoV-2 Not Detected ADDITIONAL NOTES.: The [place] Fusion SARS-CoV-2 Assay is a multiplex real-time PCR (RT-PCR) in vitro diagnostic test intended for the qualitative detection of RNA from SARS-CoV-2 from individuals who meet COVID-19 clinical and/or epidemiological criteria. In general, SARS-CoV-2 RNA can be detected during the acute phase of infection. Positive results indicate the presence of SARS-CoV-2 RNA. Clinical correlation with patient history and other diagnostic information is necessary to determine patient infection status. Positive results do not rule out bacterial infection or co-infection with other viruses. Negative results do not preclude SARS-CoV-2 infection and should not be used as the sole basis for patient management decisions. Negative results must be combined with other clinical observations, patient history, and epidemiological information. The [place] Fusion SARS-CoV-2 Assay is not yet approved or cleared by the [place] FDA. When there are no FDA-approved or cleared tests available, and other criteria are met, FDA can make tests available under an emergency access mechanism called an Emergency Use Authorization (EUA). The EUA for this test is supported by the Transportation Supervisor of Health and Human Service's (HHS's) declaration that circumstances exist to justify the emergency use of in vitro diagnostics for the detection and/or diagnosis of the virus that causes COVID-19. This EUA will remain in effect for the duration of the COVID-19 declaration justifying emergency of IVDs, unless it is terminated or revoked by FDA, after which the test may no longer be used. The [place] Fusion SARS-CoV-2 Assay is for use only under EUA in US laboratories certified under the Clinical Laboratory Improvement Amendments of 1988 (CLIA) to perform high complexity tests. [facility] PATIENT NAME: LANE BURROWS PATHOLOGY DATE OF : 40 REPORT #: [id number] PHYSICIAN: TORRES PATHOLOGY PCP: EDDIE TO MD REPORT IS CONFIDENTIAL AND NOT TO BE RELEASED WITHOUT AUTHORIZATION [address] [address] Signed is certified under CLIA to perform high complexity clinical laboratory testing. PERFORMING LABORATORY.: Molecular testing was performed by [facility] [address] [place], [place] [address] [address] (Inseam Trimming Machine Operator: Júnior Short D.O.; CLIA#: [id number]) Diagnostician: System Interface Pathologist Diagnostician: Donaldo Mckeon MD Pathologist Electronically Signed 05/17/2020 Copies: ~ PATIENT NAME: LANE BURROWS PATHOLOGY DATE OF : 40 REPORT #: [id number] PHYSICIAN: TORRES MOISE PCP: EDDIE TO MD REPORT IS CONFIDENTIAL AND NOT TO BE RELEASED WITHOUT AUTHORIZATION
--- NOTE | 2020-05-17 09:33 | NUR ---
COPY OF 2ND COVID-19 TEST FAXED TO [facility]. FOLLOW-UP PHONE ALSO PLACED, BUT LINE BUSY. WILL KEEP TRYING TO GET INTOUCH WITH [facility] TODAY.
--- NOTE | 2020-05-17 09:36 | NUR ---
CALL PLACED TO DR RO, WILL DC LEVAQUIN IV AND WILL CONT. PO DOSE FOR 2 MORE DAYS.
--- NOTE | 2020-05-17 10:02 | NUR ---
PATIENT SITTING UP IN CHAIR. SON AND DAUGHTER IN LAW IN ROOM. VITAL SIGNS AND I&O DONE. LOW OXYGEN SATURATION. RN NOTIFIED. CALL LIGHT WITHIN REACH. NO OTHER NEEDS AT THIS TIME
--- NOTE | 2020-05-17 13:29 | NUR ---
PATIENT SITTING UP IN CHAIR. DAUGHTER IN LAW IN ROOM. VITAL SIGNS AND I&O DONE. CALL LIGHT WITHIN REACH. NO OTHER NEEDS AT THIS TIME
--- NOTE | 2020-05-17 14:30 | NUR ---
PATIENT SITTING UP IN CHAIR. PATIENT ASSISTED TO USE THE BASE COMMODE. TWO PERSON ASSISTING WITH WALKER. PATIENT BACKS TO CHAIR. CALL LIGHT WITHIN REACH. NO OTHER NEEDS AT THIS TIME
--- NOTE | 2020-05-17 16:03 | NUR ---
CALL LIGHT ANSWERED. PATIENT SITTING UP IN CHAIR. PATIENT ASSISTED TO USE THE BASE COMMODE. PERICARE PERFORMED. PATIENT BACKS TO CHAIR. TWO PERSON ASSISTING WITH WALKER. CALL LIGHT WITHIN REACH. NO OTHER NEEDS AT THIS TIME
--- NOTE | 2020-05-17 17:00 | NUR ---
PATIENT SITTING UP IN CHAIR. DAUGHTER IN LAW IN ROOM. VITAL SIGNS AND I&O DONE. CALL LIGHT WITHIN REACH. NO OTHER NEEDS AT THIS TIME
--- NOTE | 2020-05-17 18:28 | NUR ---
TWO PERSON ASSIST TO STAND USING WALKER AND PIVOT TO BSC AND RECLINER, HAS BEEN UP MOST OF DAY, WORKED WELL WITH PHYSICAL THERAPY, GOOD PAIN CONTROL, CONT. TO REQUIRE ENCOURAGEMENT TO EAT. DRINKING ENSURE REPLACEMENTS. FAMILY IN ROOM WITH PATIENT. DRSG REINFORCED THIS EVENING DUE TO SMALL AMOUNT RED SERROUS FLUID LEAKING WITH ACTIVITY.
--- NOTE | 2020-05-17 19:20 | NUR ---
[facility]EDSIDE. PT AWAKE AND RESTING IN BED, DRESSING INTACT. ABD IN PLACE TO DISTAL PORTION OF DRESSING DUE TO SCANT LEAKING PER DAYSHIFT RN. WILL MONITOR. SMALL AMOUNT SEROSANGUINEOUS SHADOWING NOTED. PT APPEARS COMFORTABLE, DENIES NEEDS AND CALL LIGHT IN REACH. FAMILY IN ROOM.
--- NOTE | 2020-05-17 20:14 | NUR ---
WITH THE HELP OF ABILIO QUIROGA WE HELPED PT TO THE BSC AND BACK TO BED WITH HER FWW. GARBAGES EMPTIED. BEDSIDE TABLE AND CALL LIGHT IN REACH.
--- NOTE | 2020-05-17 22:16 | NUR ---
WITH THE HELP OF ABILIO GREGORY WE HELPED PT TO THE BSC AND BACK TO BED WITH HER FWW. BEDSIDE TABLE AND CALL LIGHT IN REACH. BOOSTED HER UP IN BED .
--- NOTE | 2020-05-17 22:35 | NUR ---
ASSESSMENT COMPLETE, SCHEDULED MEDS GIVEN ALONG WITH PRN PAIN PILL (SEE EMAR). VS AND I&O'S STABLE. NO NEW SHADOWING NOTED, WILL MONITOR. BILATERAL PEDAL PULSES NOTED. CALL LIGHT IN REACH. SCD'S AND RICHMOND LONG ON.
--- NOTE | 2020-05-17 22:42 | NUR ---
VITALS DONE AND CHARTED. BEDSIDE TABLE AND CALL LIGHT IN REACH. PT NEEDS NOTHING MORE AT THIS TIME.
--- NOTE | 2020-05-17 23:20 | NUR ---
WITH THE HELP OF ABILIO QUIROGA WE HELPED PT TO THE BSC AND BACK TO BED WITH HER FWW. BEDSIDE TABLE AND CALL LIGHT IN REACH. HELPED HER POSITION TO HER COMFORT IN HER BED. MOUTH SWABS GIVEN DUE TO A DRY MOUTH. PT NEEDS NOTHING MORE AT THIS TIME.
--- NOTE | 2020-05-17 23:55 | NUR ---
PT AWAKE AND RESTING IN BED, 0.5LNC IN PLACE, CPOX ALSO ON. O2 SAT 96%, HR 80'S. NO NEEDS VERBALIZED, CALL LIGHT IN REACH.
--- NOTE | 2020-05-18 01:55 | NUR ---
WITH THE HELP OF WALLY DUEÑAS WE HELPED PT TO THE BSC AND BACK TO BED WITH HER FWW. BEDSIDE TABLE AND CALL LIGHT IN REACH. SON IN THE ROOM WHEN WE LEFT. PT RESTING IN BED. SHE NEEDS NOTHING MORE AT THIS TIME.
--- NOTE | 2020-05-18 04:00 | NUR ---
ASSESSMENT COMPLETE, PT RESTING IN BED. 0.5LNC IN PLACE, PT TOLERATING WELL. CPOX IN PLACE, O2 SAT IN UPPER 90'S. HR WNL. DRESSING REMAINS UNCHANGED, PT DENIES NAUSEA. REPORTS TOLERABLE 5/10 PAIN. NO FURTHER NEEDS, CALL LIGHT IN REACH.
--- NOTE | 2020-05-18 05:19 | NUR ---
ASSISTED PT TO THE [facility] ALONG WITH LINDA WALLY. PT IS NOW BACK IN BED. SHE REPORTS PAIN AT 5/10 AND DENIES THE NEED FOR PAIN MEDS AT THIS TIME. CALL LIGHT IS CLOSE AND PT DENIES FURTHER NEEDS. SON IS IN ROOM. VS AND I&OS ENTERED.
--- NOTE | 2020-05-18 06:24 | NUR ---
ASSISTED PT TO BSC WITH HELP FROM ABILIO GREGORY. PT TOLERATED WELL. O2 SATS MID 80'S UPON RETURNING TO BED ON RA. RESOLVED AFTER INSTRUCTION ON DEEP BREATHING. CPOX IN PLACE TO MONITOR.O2 SAT SUSTAINING ABOVE 90%, HR MILDLY TACHY AT 105. SCHEDULED MEDS WITH PRN PAIN MEDICATION GIVEN (SEE EMAR). NO FURTHER NEEDS, CALL LIGHT IN REACH.
--- NOTE | 2020-05-18 06:54 | NUR ---
PT HAD A GOOD NIGHT, PAIN CONTROLLED WITH PRN OXYCODONE AND SCHEDULED TYLENOL. 2PA WITH FWW TO BSC, PT CONTINUES TO GET STRONGER. CALLS APPROPERIATELY, DRESSING TO RIGHT HIP, SCANT LEAKING FROM DISTAL PORTION OF DRESSING, CMS INTACT. VOIDING QS.
--- NOTE | 2020-05-18 07:15 | NUR ---
PT DESATING TO MID TO UPPER 80'S ON RA. PER ABILIO C[place], PT PLACED ON 2LNC. CPOX IN PLACE.
--- NOTE | 2020-05-18 07:25 | NUR ---
RECEIVED REPORT FROM JUNAID KNOX. PT STATES THAT SHE IS VERY TIRED AND WOULD LIKE TO GET SOME SLEEP TODAY. PT O2 SAT AT 95% ON 2L NC. THIS RN PUT PT ON 1L NC AND PT STILL SATING 94-95%.
--- NOTE | 2020-05-18 07:41 | NUR ---
PATIENT SLEEPING. SON IN ROOM. WHITE BOARD UPDATED. CALL LIGHT WITHIN REACH. NO OTHER NEEDS AT THIS TIME
--- NOTE | 2020-05-18 08:36 | NUR ---
PER VERBAL ORDER FROM THIS RN IS CHANGE PTS DRESSING ON THE RIGHT HIP TO A ELMA DRESSING TODAY
--- NOTE | 2020-05-18 08:59 | NUR ---
IN PTS ROOM TO GIVE MORNING MEDS AND DO ASSESSMENT. PT STILL STATING THAT SHE WANTS TO GET SOME GOOD REST TODAY. DISCUSSED FURTHER WITH PT AND PTS SON THAT STAFF WILL TRY TO [facility] SO SHE CAN GET SOME SLEEP
--- NOTE | 2020-05-18 09:45 | NUR ---
IN PTS ROOM TO ASSIST PT TO BEDSIDE COMMODE. PT TOLERATED WELL AND WAS ABLE TO ADJUST HERSELF IN THE BED WITH BED ASSIST
--- NOTE | 2020-05-18 10:43 | NUR ---
PATIENT SITTING UP IN ON THE EDGE OF THE BED. SON AND PHYSICAL THERAPIST IN ROOM. VITAL SIGNS AND I&O DONE. CALL LIGHT WITHIN REACH. NO OTHER NEEDS AT THIS TIME
--- NOTE | 2020-05-18 11:29 | NUR ---
PATIENT SITTING UP IN CHAIR. SON AND DAUGHTER IN LOW IN ROOM. WARM BLANKET PROVIDED. CALL LIGHT WITHIN REACH. NO OTHER NEEDS AT THIS TIME
--- NOTE | 2020-05-18 13:27 | NUR ---
PATIENT SITTING UP IN CHAIR. SON AND DAUGHTER IN LAW IN ROOM. VITAL SIGNS AND I&O DONE. CALL LIGHT WITHIN REACH. NO OTHER NEEDS AT THIS TIME
--- NOTE | 2020-05-18 16:28 | NUR ---
PATIENT RESTING IN BED. DAUGHTER IN LAW IN ROOM. PATIENT USES THE BASE COMMODE. TWO PERSON ASSISTING WITH WALKER. LINENS CHANGED. PATIENT BACKS TO BED. CALL LIGHT WITHIN REACH. NO OTHER NEEDS AT THIS TIME
--- NOTE | 2020-05-18 17:12 | NUR ---
PATIENT SITTING UP IN BED. DAUGHTER IN LAW IN ROOM. VITAL SIGNS AND I&O DONE. SETS UP TABLE FOR DINNER. CALL LIGHT WITHIN REACH. NO OTHER NEEDS AT THIS TIME
--- NOTE | 2020-05-18 18:59 | NUR ---
THIS RN IN ROOM TO ASSIST CRISTOFER KNOX AND PT BACK TO TO BED. PT APPEARS TO BE WEAKER THIS EVENING AND HER RIGHT LEG WAS NOT MOVING SO PT ATTEMPTED TO SIT DOWN SOONER AND ALMOST MISSED THE BED BUT CRISTOFER KNOX CAUGHT PT ON HER THIGH. PT ABLE TO ADJUST HERSELF AND GET SAFELY BACK TO BED.
--- NOTE | 2020-05-18 19:02 | NUR ---
SHIFT REPORT RECEIVED FROM DAYSHIFT ABILIO RUBALCAVA AT BEDSIDE. PT AWAKE AND RESTING IN BED, ELMA DRESSING C/D/I, GREEN LIGHT FLASHING. PT REPORTS FEELING TIRED, NO DENIES NEEDS. CALL LIGHT IN REACH.
--- NOTE | 2020-05-18 20:48 | NUR ---
WITH THE HELP OF ABILIO ARIAS WE HELPED PT TO THE BSC AND BACK TO BED WITH HER FWW. SCD'S PUT BACK ON. FRESH WATER GIVEN. VITALS AND I&OS DONE AND CHARTED.BEDSIDE TABLE AND CALL LIGHT IN REACH.
--- NOTE | 2020-05-18 20:58 | NUR ---
ASSESSMENT COMPLETE, NO SCHEDULED MEDS AT THIS TIME. PT RECENTLY VOIDED AND IS IN BED RESTING. VSS, HR TACHY AT 110. WILL MONITOR. DRESSING REMAINS C/D/I, GREEN OKAY LIGHT FLASHING. CMS INTACT, SCD'S AND RICH[place] HOSE IN PLACE. PT REPORTS TOLERBLE 5/10 PAIN. DENIES NAUSEA. FAMILY IN ROOM, CALL LIGHT IN REACH.
--- NOTE | 2020-05-18 22:48 | NUR ---
WITH THE HELP OF ABILIO ARIAS WE HELPED PT TO THE BSC AND BACK TO BED WITH HER FWW. PT TOLLERATED IT WELL. SCD'S PUT BACK ON. BEDSIDE TABLE AND CALL LIGHT IN REACH. SHE NEEDS NOTHING MORE AT THIS TIME.
--- NOTE | 2020-05-18 23:53 | NUR ---
PT AWAKE AND RESTING IN BED, O2 SAT ABOVE 90% ON RA, HR 106. PT APPEARS RELAXED AND DENIES NEEDS. CALL LIGHT IN REACH.
--- NOTE | 2020-05-19 02:30 | NUR ---
PT RESTING IN BED WITH EYES CLOSED. RR EVEN AND UNLABORED. NO DISTRESS NOTED, CALL LIGHT IN REACH.
--- NOTE | 2020-05-19 03:25 | NUR ---
CALL LIGHT ANSWERED, 2PA TO PIVOT TO BSC WITH FWW FOR VOID AND BM. pt BACK IN BED. ABILIO QUIROGA IN ROOM.
--- NOTE | 2020-05-19 03:28 | NUR ---
ASSESSMENT COMPLETE, NO NEW CHANGES OR CONCERNS. IN ROOM TO ASSIST PT TO BSC. PT UP 2PA WITH FWW TO BSC, TOLERATED WELL AND BACK TO BED. SCANT YELLOW SHADOWING TO ELMA DRESSING, GREEN LIGHT FLASHING. CMS INTACT, SCD'S AND RICH[place] HOSE IN PLACE. PT REPORTS TOLERABLE 5/10 PAIN, DENIES NEED FOR MEDICATION AT THIS TIME. CALL LIGHT IN REACH.
--- NOTE | 2020-05-19 04:54 | NUR ---
PT HAD A GOOD NIGHT, RESTED FOR MOST OF THE SHIFT. VSS, REMAINED ON RA. CALLS APPROPERIATELY. 2PA WITH FWW. ELMA DRESSING TO RIGHT HIP WITH SCANT YELLOW SHADOWING, GREEN LIGHT FLASHING. SCD'S AND RICHMOND HOSE ON. REGULAR DIET, ENCOURAGE PO INTAKE. VOIDING QS. SMALL BM THIS SHIFT.
--- NOTE | 2020-05-19 06:40 | NUR ---
VITALS AND I&OS DONE AND CHARTED. GARBAGES EMPTIED. WITH THE HELP OF ABILIO PAN WE HELPED PT TO THE BSC. WITH THE HELP OF ABILIO QUIROGA WE HELPED PT BACK TO BED WITH HER FWW. I DID A COMPLETE BED CHANGE DUE TO PT SPILLING HER WATER IN HER BED. CHANGED HER GOWN ALSO. BEDSIDE TABLE AND CALL LIGHT IN REACH. PT NEEDS NOTHING MORE AT THIS TIME. ALSO FRESH WATER GIVEN.
--- NOTE | 2020-05-19 07:35 | NUR ---
RECEIVED REPORT FROM JUNAID KNOX. PT APPEARS TO BE RESTING AT THIS TIME WITH RESPIRATIONS NOTED. PTS SON AT BEDSIDE THIS AM.
--- NOTE | 2020-05-19 07:42 | NUR ---
PATIENT AWAKE, BUT WANTS TO BE LEFT ALONE FOR A WHILE LONGER TO REST. SON IN ROOM. WHITE BOARD UPDATED. CALL LIGHT WITHIN REACH. NO FURTHER NEEDS AT THIS TIME.
--- NOTE | 2020-05-19 08:19 | NUR ---
CARLEENR, PT notes for 3 days, Progress notes, Covid test obtained on 05/14/20 faxed to [facility] with note, stating awaiting SNF orders as Dr. Lerner is currently in the OR. Will fax when completed.
--- NOTE | 2020-05-19 08:41 | NUR ---
IN PTS ROOM TO DO ASSESSMENT AND GIVE MORNING MEDS. PT AWAKE AND ALERT THIS AM. QUESTIONS ANSWERED TO THE BEST OF THE ABILITY OF THIS RN AT THIS TIME.
[2020-05-19] MEDS ORDERED: HYDROCODON-ACE1 EA11 PO (09:59)
--- NOTE | 2020-05-19 10:19 | NUR ---
Left message for Ayaz x 2. Received return call from Taylor as Ayaz is not working today. UPdated I have faxed orders, notes, covid test, and am awaiting Rx for Hydrocodone. She is unable to see his faxes so all refaxed to her fax number. Room is held for her. They would like her there no later than 2 pm. Notified I have a call in to van transport.
--- NOTE | 2020-05-19 10:30 | NUR ---
Spoke with Taylor from [facility]. Paperwork is completed. Pt can admit any time prior to 2 pm. Awaiting return call from [facility] [employer] for [place] transport to [facility].
--- NOTE | 2020-05-19 11:28 | NUR ---
Update given to pt and family. All in order, awaiting call from [facility]. Called and spoke with [facility] and they do not have solid waste truck driver available today.
--- NOTE | 2020-05-19 13:00 | NUR ---
Call from transport, they will pick pt up at 1 pm for transport. Pt. and family updated.
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
--- NOTE | 2020-05-19 13:51 | NUR ---
CONNECTED WITH FAMILY PT WAS BEING PREPPED FOR DC. GAVE ENCOURAGEMENT AND BLESSING
== END 2020-05-19 12:50 | DRG 482 ==
LOC: ED 22:48 → MS 05-12 01:17
PROVIDERS: ADMIT Specialist
PROC: 0QS604Z Reposition Right Upper Femur with Internal Fixation Device, Open Approach (ICD-10-PCS; principal; 2020-05-13)
PROC: 30233N1 Transfusion of Nonautologous Red Blood Cells into Peripheral Vein, Percutaneous Approach (ICD-10-PCS; 2020-05-17)
DX: S72.041A Displaced fracture of base of neck of right femur, initial encounter for closed fracture (principal); W19.XXXA Unspecified fall, initial encounter; K21.9 Gastro-esophageal reflux disease without esophagitis; Z20.828 Contact with and (suspected) exposure to other viral communicable diseases; R82.71 Bacteriuria; R09.02 Hypoxemia; K59.00 Constipation, unspecified
CPT/HCPCS: 01230; 36415; 51702; 71045; 73502; 76942; 80048; 80053; 81001; 85025; 85610; 85730; 86850; 86900; 86901; 86920; 87077; 87088; 87184; 93005; 93010; 94760; 94762; 97110; 97116; 97162; 97530; 99285-25; A9270; C1713; C9803; J0690; J1170; J1200; J1885; J1956; J2001; J2250; J2405; J2550; J2704; J7030; J7040; P9016

== ENCOUNTER 2022-04-22 11:15 | Emergency (ER) | payer MEDICARE ==
[~2022-04-22] VITALS: Ht 160 cm; Wt 67.6 kg
[~2022-04-22 11:15] MED LIST changes: +HYDROCODON-ACE1 EA11 PO
[2022-04-22] MEDS ORDERED: CEPHALEXIN500 M1 PO (13:24)
[2022-04-22] MEDS ORDERED: ONDANSETRON ODT4 MG PO (13:24)
== END 2022-04-22 15:08 | disposition home or self-care (01) ==
LOC: ED 11:15
DX: N39.0 Urinary tract infection, site not specified (principal); R53.1 Weakness; Z20.822 Contact with and (suspected) exposure to COVID-19; K21.9 Gastro-esophageal reflux disease without esophagitis; Z87.891 Personal history of nicotine dependence; Z88.0 Allergy status to penicillin; Z88.2 Allergy status to sulfonamides; Z88.1 Allergy status to other antibiotic agents; Z88.5 Allergy status to narcotic agent; Z79.899 Other long term (current) drug therapy; Z79.82 Long term (current) use of aspirin
CPT/HCPCS: 36415; 71046; 80053; 81001; 84443; 84484; 85025; 87088; 87502; 96365; 99285-25; C9803; J0696; U0003